=== PATIENT | male | born 1955 | race Two or more races ===

== ENCOUNTER 2023-12-08 13:02 | Inpatient (IN) | payer MEDICAID ==
[~2023-12-08] VITALS: Ht 177.8 cm; Wt 89.6 kg
[2023-12-08] MEDS: HYDROcodone-ACET 10/325MG TAB PO ONE (14:08)
[2023-12-08] MEDS: KETOROLAC TROMETH 60MG/2ML VIAL IM ONE (14:09)
[2023-12-08 14:35] LABS: Basophils # (auto) 0 10 ^3/uL (0-0.2); Basophils % (auto) 0.6 % (0.0-2.0); Eosinophils # (auto) 0.1 10 ^3/uL (0-0.8); Eosinophils % (auto) 1.4 % (0.0-7.0); Hematocrit 36.2 % (41.0-53.0); Lymphocytes # (auto) 1.1 10 ^3/uL (0.4-5.4); Lymphocytes % (auto) 22.2 % (10.0-50.0); Mean Corpuscular Hemoglobin 32.8 pg (28.0-32.0); Mean Corpuscular Hgb Conc. 33.2 g/dL (32.0-36.0); Monocytes # (auto) 0.6 10 ^3/uL (0-1.3); Monocytes % (auto) 12.5 % (0.0-12.0); Neutrophils # (auto) 3.1 10 ^3/uL (1.6-8.6); Neutrophils % (auto) 63.3 % (37.0-80.0); Nucleated Red Blood Cells % 0.1 %; Platelet Count (auto) 175 10^3/uL (140-450); Red Blood Cells 3.66 10^6/uL (4.5-5.90); Red Cell Distribution Width 15.1 % (11.8-14.3); White Blood Cell 4.9 10^3/uL (4.4-10.8)
[2023-12-08 14:47] LABS: Chloride 97 mmol/L (98-107); Potassium 4.5 mmol/L (3.5-5.1); Sodium 139 mmol/L (136-145)
[2023-12-08 14:48] LABS: Anion Gap 6 (5-15); Calcium 10.1 mg/dL (8.7-10.4); Carbon Dioxide 36 mmol/L (20-31)
[2023-12-08 14:53] LABS: BUN/Creatinine Ratio 3.6 (10.0-20.0); Blood Urea Nitrogen 26 mg/dL (9-23); Glucose 125 mg/dL (74-106)
[2023-12-08 15:10] LABS: Urine Bacteria None Seen /hpf (None Seen); Urine Blood Negative /uL (Negative); Urine Clarity Clear (Clear); Urine Color Light-Yellow (Yellow); Urine Protein, UAD 2+ (Negative); Urine Urobilinogen Normal (Negative); Urine WBC 3 /hpf (0 - 3)
[2023-12-08 19:36] VITALS: PULSE 56; RESP 18; O2SAT 98
[2023-12-08] MEDS ORDERED: ONDANSETRON HCL 4 MG/2 ML VIAL IV PRN (21:00)
[2023-12-08] MEDS ORDERED: HYDROcodone-ACET 5/325MG TAB PO PRN (21:00)
[2023-12-08] MEDS ORDERED: ACETAMINOPHEN 325 MG TAB PO PRN (21:00)
[2023-12-08] MEDS ORDERED: DOCUSATE SOD 100 MG CAP PO PRN (21:00)
[2023-12-08] MEDS: hydrALAZINE HCL 20 MG/ML VL IV PRN (22:23)
[2023-12-08] MEDS ORDERED: MORPHINE SULFATE INJ 2 MG/ml SYRG IV PRN (23:00)
[2023-12-08] MEDS ORDERED: NITROGLYCERIN 0.4 MG SL TAB SL PRN (23:00)
[2023-12-09] VITALS (8 sets, daily range): BP systolic 120–168; BP diastolic 73–85; PULSE 59–80; RESP 17–18; TEMP 36.3; O2SAT 98–100
[2023-12-09] MEDS: MORPHINE SULFATE INJ 2 MG/ml SYRG IV PRN (01:47)
[2023-12-09 05:55] LABS: Basophils # (auto) 0 10 ^3/uL (0-0.2); Basophils % (auto) 0.8 % (0.0-2.0); Eosinophils # (auto) 0.1 10 ^3/uL (0-0.8); Eosinophils % (auto) 1.6 % (0.0-7.0); Hematocrit 40.4 % (41.0-53.0); Hemoglobin 13.3 g/dL (13.5-17.5); Lymphocytes # (auto) 1.5 10 ^3/uL (0.4-5.4); Lymphocytes % (auto) 23.7 % (10.0-50.0); Mean Corpuscular Hemoglobin 32.8 pg (28.0-32.0); Mean Corpuscular Hgb Conc. 32.8 g/dL (32.0-36.0); Mean Corpuscular Volume 100.1 fL (80.0-100.0); Monocytes # (auto) 0.8 10 ^3/uL (0-1.3); Monocytes % (auto) 12.4 % (0.0-12.0); Neutrophils # (auto) 3.9 10 ^3/uL (1.6-8.6); Neutrophils % (auto) 61.5 % (37.0-80.0); Nucleated Red Blood Cells % 0.1 %; Platelet Count (auto) 157 10^3/uL (140-450); Red Blood Cells 4.04 10^6/uL (4.5-5.90); Red Cell Distribution Width 14.8 % (11.8-14.3); White Blood Cell 6.3 10^3/uL (4.4-10.8)
[2023-12-09 06:24] LABS: Albumin 4.4 g/dL (3.2-4.8); Alkaline Phosphatase 79 U/L (46-116); Anion Gap 8 (5-15); Aspartate Aminotransferase 9 U/L (13-40); BUN/Creatinine Ratio 3.8 (10.0-20.0); Bilirubin, Total 0.5 mg/dL (0.2-1.0); Blood Urea Nitrogen 32 mg/dL (9-23); Calcium 10.4 mg/dL (8.7-10.4); Carbon Dioxide 31 mmol/L (20-31); Chloride 98 mmol/L (98-107); Glucose 94 mg/dL (74-106); Potassium 5.4 mmol/L (3.5-5.1); Sodium 137 mmol/L (136-145)
[2023-12-09 06:34] LABS: Alanine Aminotransferase < 9 U/L (7-40)
[2023-12-09] MEDS: ALBUTEROL SULF 2.5 MG/0.5ML(0.5%) NEB SOLN NEB ONE (09:13)
[2023-12-09] MEDS: SEVELAMER 800 MG TAB PO SCH (09:42)
[2023-12-09] MEDS: NIFEdipine ER 30 MG TAB PO SCH (09:43)
[2023-12-09] MEDS: SODIUM ZIRCONIUM CYCL 10 GM PAK PO ONE (09:43)
[2023-12-09] MEDS: B-COMPLEX W/ C & FOLIC ACID(NEPHROVITE TAB) PO SCH (09:43)
[2023-12-09 12:47] LABS: Amphetamine Screen, Urine Neg (NEGATIVE); Barbiturate Scree,Urine Neg (NEGATIVE); Benzodiazephine Screen, Urine Neg (NEGATIVE); Cannabinoid Screen, Urine Neg (NEGATIVE); Cocaine Screen, Urine Neg (NEGATIVE); Opiate Scree,Urine Neg (NEGATIVE); Phencyclidine Screen, Urine Neg (NEGATIVE)
[2023-12-10 11:58] LABS: Folate (Folic Acid) 31.1 ng/mL (>5.38)
== END 2023-12-09 17:49 | disposition home or self-care (01) | DRG 465 ==
LOC: ER 13:02 → TELE 23:01 → TELE-WESTW 12-09 03:30
PROVIDERS: ADMIT Nurse Practitioner Family; ATTEND Nurse Practitioner Family
DX: N20.0 Calculus of kidney (principal); N17.9 Acute kidney failure, unspecified; I13.2 Hypertensive heart and chronic kidney disease with heart failure and with stage 5 chronic kidney disease, or end stage renal disease; E83.39 Other disorders of phosphorus metabolism; S39.012A Strain of muscle, fascia and tendon of lower back, initial encounter; R73.9 Hyperglycemia, unspecified; N18.6 End stage renal disease; M10.9 Gout, unspecified; E78.5 Hyperlipidemia, unspecified; E87.5 Hyperkalemia; I50.22 Chronic systolic (congestive) heart failure; Z99.2 Dependence on renal dialysis; Z79.899 Other long term (current) drug therapy; X58.XXXA Exposure to other specified factors, initial encounter; Y93.89 Activity, other specified; Y92.89 Other specified places as the place of occurrence of the external cause; Y99.8 Other external cause status
CPT/HCPCS: 36415; 71045; 74176; 76775; 80048; 80053; 80307; 81001; 82306; 82607; 82746; 83036; 83880; 83970; 84100; 84132; 84443; 85025; 87081; 94640; 96372; 96374; G0378; J1885

== ENCOUNTER 2024-03-27 20:17 | Inpatient (IN) | payer MEDICAID ==
[~2024-03-27] VITALS: Ht 175.3 cm; Wt 92.6 kg
--- NOTE | 2024-03-27 20:47 | ED.PDOC ---
GI ASSESSMENT HPI Comments Sunita De La Rosa 68-year-old male patient who presents to ED with chief complaint of dizziness which started after hemodialysis session today at 11:00 a.m (balance -3L), associated with multiple episodes of proctorrhagia which started at 2:00 a.m. last night, associated with chills, bilateral flank pain and productive cough with dark sputum. Family reports grandchildren have been presenting diarrhea as well. Denies head trauma, syncope, chest pain, dyspnea, nausea, vomiting, constipation, dysuria and motor or sensory deficits. Past medical history: Hypertension, dyslipidemia, end-stage renal disease on hemodialysis 3 times a week (Sunday, and Sunday), [place] in two opportunities with PCI requiring stent placement, gout Surgical history: PCI x2, last one was one year ago. AV fistula on left arm Family history: Noncontributory Social history: Lives with daughter in [place]. Denies current tobacco, alcohol and other drug abuse Allergies: Denies Home medication: Sevelamer, losartan 50 mg p.o. daily, vitamin-D, nifedipine 60 mg p.o. daily, Ropinirole, carvedilol 3.125 mg bid, allopurinol, clopidogrel Chief Complaint: GI Bleed Time Seen by MD: 20:18 Allergies: Coded Allergies: NO KNOWN ALLERGIES (Unverified , 12/08/23) Past Medical History PAST MEDICAL HISTORY: Denies Surgical History: Denies all surgeries Family History Family History: Reviewed,noncontributory to illness Social History Smoker: Non-Smoker Alcohol: Denies ETOH Use Drugs: Denies Drug Use Lives In: Home Physical Exam General Appearance: Mild Distress, Normal, Thin HEENT: Pale Conjuntivae (L), Pale Conjuntivae (R), Pharynx Normal, TMs Normal Neck: Full Range of Motion, Non-Tender, Normal, Normal Inspection Respiratory: Chest Non-Tender, Lungs Clear, No Accessory Muscle Use, No Respiratory Distress, Normal Breath Sounds Cardiovascular: No Edema, No JVD, No Murmur, No Gallop, Normal Peripheral Pulses, Regular Rate/Rhythm Breast Exam: Deferred Gastrointestinal: Diffuse, No Organomegaly, No Pulsatile Mass, Normal Bowel Sounds, Soft, Tenderness Genitalia: Deferred Pelvic: Deferred Rectal: Deferred Extremities: No calf tenderness, Normal capillary refill, Normal inspection, Normal range of motion, Non-tender, No pedal edema Neurologic: Alert, millwright supervisor II-XII nml as Tested, No Motor Deficits, Normal Affect, Normal Mood, No Sensory Deficits Cerebellar Function: Normal Reflexes: Normal Skin: Dry, Normal Color, Warm Lymphatic: No Adenopathy Was a procedure done? Was a procedure done?: No GI differential Dx Differential Diagnosis: Angina/IL, Bowel Obstruction, Ectopic , Gastritis/PUD, GI hemorrhage, Hepatitis, Ischemic Bowel, Urolithiasis, Dehydration, Electrolyte Imbalance, Bacterial, Parasitic, Viral, Hypovolemia, Renal Failure, Anemia X-Ray, Labs, Meds, VS Vital Signs Date Time Temp Pulse Resp B/P (MAP) Pulse Ox O2 Delivery O2 Flow Rate FiO2 03/27/24 21:39 72 21 87/49 (62) 97 03/27/24 20:48 98.4 82 20 91/51 (64) 100 03/27/24 20:48 82 03/27/24 20:44 81 Lab Test 03/27/24 21:41 03/27/24 21:15 03/27/24 21:00 Range/Units White Blood Count Pending Red Blood Count Pending Hemoglobin Pending Hematocrit Pending Mean Corpuscular Volume Pending Mean Corpuscular Hemoglobin Pending Mean Corpuscular Hemoglobin Concent Pending Red Cell Distribution Width Pending Platelet Count Pending Mean Platelet Volume Pending Neutrophils (%) (Auto) Pending Lymphocytes (%) (Auto) Pending Monocytes (%) (Auto) Pending Basophils (%) (Auto) Pending Neutrophils # (Auto) Pending Lymphocytes # (Auto) Pending Monocytes # (Auto) Pending Prothrombin Time Pending Prothrombin Time INR Pending Activated Partial Thromboplast Time Pending Sodium Level Pending Potassium Level Pending Chloride Level Pending Carbon Dioxide Level Pending Anion Gap Pending Blood Urea Nitrogen Pending Creatinine Pending Glomerular Filtration Rate Calc Pending BUN/Creatinine Ratio Pending Serum Glucose Pending Lactic Acid Level Pending Calcium Level Pending Phosphorus Level Pending Magnesium Level Pending Total Bilirubin Pending Aspartate Amino Transferase (AST) Pending Alanine Aminotransferase (ALT) Pending Alkaline Phosphatase Pending Total Protein Pending Albumin Pending Lipase Pending Thyroid Stimulating Hormone (TSH) Pending Iron Level Pending Total Iron Binding Capacity Pending Percent Iron Saturation Pending Stool Occult Blood Sample #3 Pending Current Medications Medications (Trade) Dose Ordered Sig/Ryan Route Start Time Stop Time Status Last Admin Ondansetron HCl (Zofran Po) 4 mg ONCE ONCE PO 03/27/24 20:45 03/27/24 20:46 DC 03/27/24 21:55 Pantoprazole Sodium (Protonix) 40 mg ONCE ONCE IV 03/27/24 21:15 03/27/24 21:16 DC 03/27/24 21:55 Time of 1ST Reevaluation: 22:05 Reevaluation 1ST: Worsened Patient Education/Counseling: Diagnosis, Treatment, Prognosis Family Education/Counseling: Diagnosis, Treatment, Prognosis Departure 1 Departure Time of Disposition: 22:03 Impression: Primary Impression: Lower GI bleed Disposition: ADMITTED INPATIENT Condition: Serious Additional Instructions: PAtient has active bleeding, will place central line, awaiting for type and screen. Will admit to stabilize. Patient has critical prognosis, spoke with daughter. Critical Care Note Critical Care Time?: No Stability Stability form required: No Heart Score Heart Score: Heart Score Response (Comments) Value History N/A 0 EKG N/A 0 Age N/A 0 Risk Factors N/A 0 Troponin N/A 0 Total 0 KELLY SINGLETON RESIDENT Mar 27, 2024 20:47
--- NOTE | 2024-03-27 20:50 | ECG ---
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
[2024-03-27] MEDS: ONDANSETRON ODT 4 MG TAB PO ONE (21:55)
[2024-03-27] MEDS: PANTOPRAZOLE 40 MG/10 ML VIAL INJ IV ONE (21:55)
[2024-03-27 21:59] LABS: Basophils # (auto) 0 10 ^3/uL (0-0.2); Eosinophils # (auto) 0.1 10 ^3/uL (0-0.8); Lymphocytes # (auto) 1.1 10 ^3/uL (0.4-5.4); Mean Corpuscular Hgb Conc. 32.6 g/dL (32.0-36.0); Neutrophils # (auto) 3.2 10 ^3/uL (1.6-8.6); Nucleated Red Blood Cells % 0.1 %; Red Blood Cells 1.89 10^6/uL (4.5-5.90); White Blood Cell 4.9 10^3/uL (4.4-10.8)
[2024-03-27 22:01] LABS: Basophils % (auto) 0.7 % (0.0-2.0); Eosinophils % (auto) 1.3 % (0.0-7.0); Hematocrit 19.3 % (41.0-53.0); Lymphocytes % (auto) 22.8 % (10.0-50.0); Mean Corpuscular Hemoglobin 33.3 pg (28.0-32.0); Mean Corpuscular Volume 102.1 fL (80.0-100.0); Monocytes # (auto) 0.5 10 ^3/uL (0-1.3); Monocytes % (auto) 10.3 % (0.0-12.0); Neutrophils % (auto) 64.9 % (37.0-80.0); Platelet Count (auto) 155 10^3/uL (140-450); Red Cell Distribution Width 15.4 % (11.8-14.3)
[2024-03-27 22:03] VITALS: RESP 14; O2SAT 98
[2024-03-27 22:08] LABS: Hemoglobin 6.3 g/dL (13.5-17.5)
--- NOTE | 2024-03-27 22:08 | DVHNC2 ---
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 (Resident) Indication: Hypotension, CVP monitoring, Volume resuscitation, Inability to obtain IV Room prepared for procedure: Yes Social Media Assistant performed hand hygien: Yes Maximal sterile barrier precau: Mask/Eye shield, Sterile gown, Cap, Sterlie gloves, Large sterlie drape Skin Preparation: Chlorhexidine gluconate Skin preparation completely dr: Yes Insertion site: Right, Internal jugular, Line secured Central line catheter type: [id number] dialysis Number of lumens: 3 Central line exchanged over a: No Antiseptic ointment applied to: Yes Post Assessment: Chest X-Ray Informed consent obtained: Yes Risks/benefits/alt described: Yes Date of Service: Mar 27, 2024 Billing Provider: JIMMY SHERIFF NP STDN Common Visit Codes: PROCEDURE ONLY Procedure Codes: [id number] NON-TUNNEL CV CATH KELLY SINGLETON RESIDENT Mar 27, 2024 22:08
[2024-03-27 22:18] LABS: Albumin 4.2 g/dL (3.2-4.8); Alkaline Phosphatase 75 U/L (46-116); Anion Gap 13 (5-15); BUN/Creatinine Ratio 4.6 (10.0-20.0); Bilirubin, Total 0.5 mg/dL (0.2-1.0); Calcium 9.4 mg/dL (8.7-10.4); Carbon Dioxide 27 mmol/L (20-31); Magnesium 2.4 mg/dL (1.6-2.6); Phosphorus 3.3 mg/dL (2.4-5.1); Sodium 138 mmol/L (136-145)
[2024-03-27 22:19] LABS: INR 1.02 (0.9-1.15); Partial Thromboplastin Time 21.7 SEC (24.5-34.5); Prothrombin Time 10.8 sec (9.3-11.8)
[2024-03-27 22:23] LABS: Aspartate Aminotransferase < 8 U/L (13-40); Blood Urea Nitrogen 45 mg/dL (9-23); Chloride 98 mmol/L (98-107); Glucose 181 mg/dL (74-106)
[2024-03-27 22:24] LABS: Alanine Aminotransferase < 9 U/L (7-40)
[2024-03-27 22:27] LABS: Lactic Acid w/Reflex 5.7 mmol/L (0.4-2.0); Potassium 5.7 mmol/L (3.5-5.1)
[2024-03-27 22:28] LABS: % Iron Saturation 49.7 % (20-55)
[2024-03-27] MEDS: SODIUM CHLORIDE 0.9% 250 ML IV ONE (22:35)
[2024-03-27 22:37] LABS: Lipase 24 U/L (12-53)
[2024-03-27] MEDS: ALBUTEROL SULF 2.5 MG/0.5ML(0.5%) NEB SOLN NEB ONE (22:48)
[2024-03-27] MEDS: InsuLIN REG 1unit/0.01ml Soln (100units/ml) IV ONE (22:48)
--- NOTE | 2024-03-27 22:49 | DVH ---
EXAM: XY CHEST PORTABLE CLINICAL HISTORY: CENTRAL LINE PLACEMENT TECHNIQUE: Single AP view of the chest WID: COMPARISON: XY CHEST XRAY 1 VIEW on DOS: 12/09/23 FINDINGS: Lines and tubes: Right IJ central venous catheter with the tip projecting over the low SVC. Chest: The heart size and pulmonary vasculature is within normal limits. Calcified plaque projects over the aortic arch. No pleural effusion, pneumothorax, or consolidation. Linear scarring or atelectasis in the left lung base. The osseous structures are grossly intact. IMPRESSION: 1. No acute cardiopulmonary abnormality. 2. Right IJ central venous catheter placement with tip projecting of the low SVC
[2024-03-27] MEDS: DEXTROSE (50%) 50ML SYRG IV ONE (22:51)
[2024-03-27] MEDS: SODIUM BICARB 8.4% 50Meq/50ml SYR INJ IV ONE (22:51)
[2024-03-27] MEDS: SODIUM ZIRCONIUM CYCL 10 GM PAK PO ONE (22:52)
--- NOTE | 2024-03-27 23:43 | DVH ---
CLINICAL HISTORY: Lower GI bleeding and bilateral flank pain TECHNIQUE: CT of the abdomen and pelvis was performed without intravenous contrast. This exam was per formed according to our departmental dose optimization program. Up-to-date CT equipment and radiation dose reduction techniques are utilized as appropriate. CTDI: 20.55 DLP: 1348.66 WID: COMPARISON: CT CT AB PEL WO CON-NO ORAL OR IV on DOS: 12/08/23 FINDINGS: Lower Thorax: Small pxweo-qysszhl-eyzr-left pleural effusions. Linear and ground-glass atelectasis in the lung bases. Mild cardiomegaly with trace pericardial fluid. Partially imaged moderate to marked 3-vessel coronary artery calcifications and mild aortic valve calcifications. There is a tip of the c entral venous catheter at the cavoatrial junction. Hypodensity of the blood pool relative to the myoc ardium indicative of anemia. Small bilateral symmetric gynecomastia. Liver and Biliary system: Unremarkable. Spleen: Unremarkable. Adrenal Glands and Kidneys: Normal adrenal glands. Mildly atrophic kidneys. There is perinephric soft tissue stranding unchanged. Exophytic bilateral renal hypodensities likely cysts although not optima lly evaluated by CT bilateral renal sinus cysts. Bilateral renal hilar vascular calcifications. No hy dronephrosis. Pancreas and Retroperitoneum: Normal pancreas. Mildly prominent retroperitoneal lymph nodes although are predominantly normal-size. Aorta and Major Vessels: Aortoiliac vessels are normal in caliber with marked calcified atherosclerot ic plaque Bowel, Mesentery and Peritoneal space: Normal caliber small and large bowel. Normal appendix. Mild co lonic diverticulosis. No free air or loculated fluid collection. There is slight soft tissue strandin g adjacent to the proximal ascending colon with ill definition of 1 of the diverticula posteriorly on series 2, image 54. Pelvis: Decompressed urinary bladder. Mild prostatomegaly. No pelvic lymphadenopathy. Abdominal wall and Osseous Structures: Multilevel lower thoracic and lumbar spondylosis. Prominent in ferior endplate schmorl's nodes at L1 and L5. No destructive osseous lesion. IMPRESSION: 1. Mild colonic diverticulosis; slight ill definition of 1 of the diverticula posteriorly in the prox imal ascending colon with mild surrounding soft tissue thickening which could reflect early acute div erticulitis 2. Perinephric soft Tissue stranding unchanged. Correlate with urinalysis if there is clinical angelika rn for urinary tract infection. 3. Anemia. 4. Mild cardiomegaly and small ajslk-goyzico-vyht-left pleural effusions. 5. Partially imaged moderate to marked 3-vessel coronary artery calcifications and mild aortic valve calcifications. 6. Mild prostatomegaly.
[2024-03-27 23:50] VITALS: BP 118/58; PULSE 80; RESP 13; TEMP 98.1
[2024-03-28] VITALS (15 sets, daily range): BP systolic 121–152; BP diastolic 59–80; PULSE 65–107; RESP 12–20; TEMP 97.5–98.7; O2SAT 96–100
--- NOTE | 2024-03-28 01:50 | DVHHPRES ---
History of Present Illness Resident Creating Document: KATHERIN DAY RESIDENT History of Present Illness Patient is a 68-year-old male with past medical history of hypertension, dyslipidemia, ESRD dialysis 3 times, myocardial infarction s/p PCI x2 stents 1 year ago, gout, restless leg syndrome, who came in due to diarrhea and bloody stools. According to the patient, he started having bloody diarrhea in the evening of 03/26/2023, notes having more than 10 bowel movements overnight. Per patient, he missed his dialysis session on Sunday, after the completion of his dialysis session on with removal of 3 L of fluid, he noticed increasing lightheadedness which is what prompted this visit to the hospital. Denies having similar symptoms in the past. On review of systems patient is complaining of chills, dry cough, shortness of breath, nausea, dysuria and bloody diarrhea. Patient was noted to have a hemoglobin of 6.3 and 2 PRBC transfusions were ordered for him. Patient is AAO x4 but relatively a poor historian with regards to details about his past medical history. Past Medical History hypertension, dyslipidemia, ESRD dialysis 3 times, myocardial infarction s/p PCI x2 stents 1 year ago, gout, restless leg syndrome Past Surgical History Left arm dialysis fistula Smoke: No ALCOHOL: none Drugs: None Lives: with Family Review of Systems Constitutional: Yes: Chills; No: Fever, Sweats, Weakness, Malaise, Other Eyes: No: Pain, Vision change, Conjunctivae inflammation, Eyelid inflammation, Other, Redness ENT: No: Ear pain, Ear discharge, Nose pain, Nose discharge, Nose congestion, Mouth pain, Mouth swelling, Throat pain, Throat swelling, Other Respiratory: Cough, Shortness of breath; No: Dry, SOB with excertion, Wheezing, Hemoptysis, Pleuritic Pain, Sputum, Wheezing, Other Cardiovascular: No: Chest Pain, Palpitations, Orthopnea, Paroxysmal Noc. Dyspnea, Edema, Lt Headedness, Other Gastrointestinal: Nausea, Diarrhea, Hematochezia; No: Vomiting, Abdominal Pain, Constipation, Melena, Other Genitourinary: Dysuria; No Frequency, No Incontinence, No Hematuria, No Retention, No Other Musculoskeletal: No: other, neck pain, shoulder pain, arm pain, back pain, hand pain, leg pain, foot pain Skin: No: Rash, Lesions, Jaundice, Bruising, Other Neurological: No: Weakness, Numbness, Incoordination, Change in speech, Confusion, Seizures, Other Allergies: Coded Allergies: Spironolactone (Verified Allergy, Unknown, 03/28/24) Medications Current Medications Medications Dose Ordered Sig/Ryan Route Start Time Stop Time Status Last Admin Dose Admin Pantoprazole Sodium 40 mg BID IV 03/28/24 10:00 Patient Own Medication 1 DAILY PO 03/28/24 10:00 UNV Sevelamer HCl 800 mg TIDWM PO 03/28/24 08:00 Exam Vital Signs Vital Signs Date Time Temp Pulse Resp B/P (MAP) Pulse Ox O2 Delivery O2 Flow Rate FiO2 03/28/24 01:15 77 13 127/60 (82) 100 03/28/24 01:00 98.3 98.3 03/27/24 22:49 Nasal Cannula* 3 32 General Appearance: Alert, Oriented X3, Cooperative, mild distress HEENT: Atraumatic, PERRLA, EOMI Respiratory: Normal air movement, Other (Trace crackles) Cardiovascular: Regular rate, Normal S1, Normal S2 Abdominal: Normal bowel sounds, Soft, No tenderness Extremities: Normal pulses, Other (1+ lower extremity edema) Skin: No rashes, No breakdown Neuro: Normal speech, Strength at 5/5 X4 ext, Sensation intact Psych/Mental Status: Mental status NL, Mood NL Labs/Xrays Labs Test 03/27/24 23:33 03/27/24 22:50 03/27/24 21:41 03/27/24 21:15 Range/Units Lactic Acid Level 2.9 *H 0.4-2.0 mmol/L POC Glucose 164 H 70-106 mg/dl White Blood Count 4.9 4.4-10.8 10^3/uL Red Blood Count 1.89 L 4.5-5.90 10^6/uL Hemoglobin 6.3 *L 13.5-17.5 g/dL Hematocrit 19.3 L 41.0-53.0 % Mean Corpuscular Volume 102.1 H 80.0-100.0 fL Mean Corpuscular Hemoglobin 33.3 H 28.0-32.0 pg Mean Corpuscular Hemoglobin Concent 32.6 32.0-36.0 g/dL Red Cell Distribution Width 15.4 H 11.8-14.3 % Platelet Count 155 140-450 10^3/uL Mean Platelet Volume 9.8 6.9-10.8 fL Neutrophils (%) (Auto) 64.9 37.0-80.0 % Lymphocytes (%) (Auto) 22.8 10.0-50.0 % Monocytes (%) (Auto) 10.3 0.0-12.0 % Eosinophils (%) (Auto) 1.3 0.0-7.0 % Basophils (%) (Auto) 0.7 0.0-2.0 % Neutrophils # (Auto) 3.2 1.6-8.6 10 ^3/uL Lymphocytes # (Auto) 1.1 0.4-5.4 10 ^3/uL Monocytes # (Auto) 0.5 0-1.3 10 ^3/uL Eosinophils # (Auto) 0.1 0-0.8 10 ^3/uL Basophils # (Auto) 0 0-0.2 10 ^3/uL Nucleated Red Blood Cells 0.1 % Prothrombin Time 10.8 9.3-11.8 sec Prothrombin Time INR 1.02 0.9-1.15 Activated Partial Thromboplast Time 21.7 L 24.5-34.5 SEC Sodium Level 138 136-145 mmol/L Potassium Level 5.7 *H 3.5-5.1 mmol/L Chloride Level 98 98-107 mmol/L Carbon Dioxide Level 27 20-31 mmol/L Anion Gap 13 5-15 Blood Urea Nitrogen 45 H 9-23 mg/dL Creatinine 9.70 H 0.700-1.30 mg/dL Glomerular Filtration Rate Calc 5 >90 mL/min BUN/Creatinine Ratio 4.6 L 10.0-20.0 Serum Glucose 181 H 74-106 mg/dL Calcium Level 9.4 8.7-10.4 mg/dL Phosphorus Level 3.3 2.4-5.1 mg/dL Magnesium Level 2.4 1.6-2.6 mg/dL Total Bilirubin 0.5 0.2-1.0 mg/dL Aspartate Amino Transferase (AST) < 8 L 13-40 U/L Alanine Aminotransferase (ALT) < 9 7-40 U/L Alkaline Phosphatase 75 46-116 U/L Total Protein 6.0 5.7-8.2 g/dL Albumin 4.2 3.2-4.8 g/dL Lipase 24 12-53 U/L Thyroid Stimulating Hormone (TSH) 4.58 0.55-4.78 uIU/mL Iron Level 94 65-175 ug/dL Total Iron Binding Capacity 189 L 250-425 ug/dL Percent Iron Saturation 49.7 20-55 % Test 03/27/24 21:00 Range/Units Stool Occult Blood Positive Negative Stool Occult Blood Sample #3 Negative Assessment/Plan Assessment/Plan Lower GI bleed Possible uremic platelet dysfunction Lactic acidosis - CT abdomen pelvis:Mild colonic diverticulosis; slight ill definition of 1 of the diverticula posteriorly in the proximal ascending colon with mild surrounding soft tissue thickening which could reflect early acute diverticulitis. Perinephric soft Tissue stranding unchanged. Correlate with urinalysis if there is clinical concern for urinary tract infection. Anemia. Mild cardiomegaly and small zudks-dvmgqrp-lzij-left pleural effusions. Partially imaged moderate to marked 3-vessel coronary artery calcifications and mild aortic valve calcifications. Mild prostatomegaly. - CXR: No acute cardiopulmonary abnormality - s/p 1 PRBC transfusion - IV NS 1 L - IV Protonix 40 b.i.d. - GI consulted - sodium bicarb 1 amp ESRD on hemodialysis Sunday, and Sunday History of Bilateral nephrolithiasis - resumed sevelamer 800 mg p.o. t.i.d. - consulted nephrology Heart failure with moderately reduced ejection fraction, EF 40% in April 2023 Prolonged QTC Coronary artery disease s/p PTCA x2 - BNP - ordered echocardiogram Hyperkalemia - insulin and dextrose - albuterol - Lokelma 10 g once Hypertension Dyslipidemia Restless leg syndrome - resumed home medication ropinirole - gabapentin 300 mg Goals of care: Full code, discussed for >16 minutes on 03/27/2024 Plan discussed with patient Plan discussed with Dr. Estrada Plan discussed with: Patient, Other (RN) My Orders Orders - KATHERIN DAY RESIDENT Procedure Category Date Status Time Admit ADMIT 03/27/24 Transmitted 22:31 Code Status CODE 03/27/24 Transmitted 22:31 Vital Signs JAYNA 03/27/24 In Process 22:31 Review Orders With JAYNA 03/27/24 In Process Adm. 22:31 Notify Of Changes JAYNA 03/27/24 In Process From Base 22:31 Advance Directive JAYNA 03/27/24 In Process 22:31 Patient Condition ORDERS 03/27/24 Transmitted 22:31 Allergies JAYNA 03/27/24 In Process 22:31 Notify Of Changes JAYNA 03/27/24 In Process From Base 22:31 * Gi Dvh Fermenter Operator CONS 03/28/24 Transmitted 01:40 Npo Except For JAYNA 03/28/24 In Process Medications 01:40 Folate (Folic Acid) LAB 03/28/24 Logged 01:40 Vitamin B12 LAB 03/28/24 Logged 01:40 Reticulocyte Count LAB 03/28/24 Logged 01:40 Lactate Dehydrogenase LAB 03/28/24 Logged 01:40 *Dr. Ebonie Rodriguez -Da CONS 03/28/24 Transmitted Bree 01:40 Potassium LAB 03/28/24 Logged 01:40 Urinalysis LAB 03/28/24 Logged 01:40 Blood Culture MIKE 03/28/24 Logged 01:40 Lactic Acid W/ Reflex LAB 03/28/24 Logged Order 01:40 B-Type Natriuretic LAB 03/28/24 Logged Peptide 01:40 Echo 2d Mode Cardiac US 03/28/24 Logged DOP 01:40 Patients Own PHA 03/28/24 Logged Medication 10:00 Sevelamer (Renagel) PHA 03/28/24 In Process 08:00 Date of Service: Mar 27, 2024 Billing Provider: YAN BABCOCK MD Common Visit Codes: [id number] INP/OBS CARE (HIGH) KATHERIN DAY RESIDENT Mar 28, 2024 01:50 YAN BABCOCK MD Apr 02, 2024 16:02
[2024-03-28] MEDS: GABAPENTIN 300 MG CAP PO ONE (04:02)
[2024-03-28] MEDS: SEVELAMER 800 MG TAB PO SCH (08:00)
[2024-03-28] MEDS: PANTOPRAZOLE 40 MG/10 ML VIAL INJ IV SCH (08:20)
[2024-03-28] MEDS: ROPINIROLE PO SCH (08:20)
[2024-03-28 08:57] LABS: Basophils # (auto) 0 10 ^3/uL (0-0.2); Basophils % (auto) 0.6 % (0.0-2.0); Eosinophils # (auto) 0.1 10 ^3/uL (0-0.8); Eosinophils % (auto) 1.4 % (0.0-7.0); Hematocrit 22.7 % (41.0-53.0); Hemoglobin 7.5 g/dL (13.5-17.5); Lymphocytes # (auto) 1.1 10 ^3/uL (0.4-5.4); Lymphocytes % (auto) 23.1 % (10.0-50.0); Mean Corpuscular Hemoglobin 31.6 pg (28.0-32.0); Mean Corpuscular Hgb Conc. 33.2 g/dL (32.0-36.0); Mean Corpuscular Volume 95.3 fL (80.0-100.0); Monocytes # (auto) 0.5 10 ^3/uL (0-1.3); Monocytes % (auto) 11.8 % (0.0-12.0); Neutrophils # (auto) 2.9 10 ^3/uL (1.6-8.6); Neutrophils % (auto) 63.1 % (37.0-80.0); Platelet Count (auto) 131 10^3/uL (140-450); Red Blood Cells 2.38 10^6/uL (4.5-5.90); Red Cell Distribution Width 15.8 % (11.8-14.3); White Blood Cell 4.6 10^3/uL (4.4-10.8)
[2024-03-28 09:04] LABS: Folate (Folic Acid) 19.02 ng/mL (>5.38)
[2024-03-28 09:52] LABS: Chloride 101 mmol/L (98-107); Sodium 141 mmol/L (136-145)
[2024-03-28 09:53] LABS: Anion Gap 9 (5-15); Carbon Dioxide 31 mmol/L (20-31)
[2024-03-28 09:54] LABS: Calcium 9.3 mg/dL (8.7-10.4)
[2024-03-28 09:56] LABS: Potassium 5.3 mmol/L (3.5-5.1)
[2024-03-28 09:58] LABS: BUN/Creatinine Ratio 4.7 (10.0-20.0)
[2024-03-28 10:31] LABS: Blood Urea Nitrogen 48 mg/dL (9-23); Glucose 115 mg/dL (74-106)
[2024-03-28] MEDS: cefTRIAXone 1GM/50ML D5W 50 ML IV ONE (11:10)
[2024-03-28] MEDS: metroNIDAZOLE 500MG/100ML 100 ML IV ONE (11:10)
--- NOTE | 2024-03-28 11:32 | DVHINCON2 ---
DATE OF CONSULTATION: 03/28/2024 CONSULTING PHYSICIAN: Dr. Cohen. REASON FOR CONSULTATION: Management of dialysis. HISTORY OF PRESENT ILLNESS: The patient is a 68-year-old gentleman, who is one of our chronic dialysis patients, who receives his dialysis on Sunday, and Sunday. He came to the hospital yesterday complaining of bloody diarrhea for the last 3 days. He was found to have a hemoglobin of 6. He received a blood transfusion in the Emergency Room and has been admitted for gastrointestinal workup and colonoscopy. I am being consulted to handle his dialysis treatment while he is here. The patient denies any fever, no chest pain, no shortness of breath. PAST MEDICAL HISTORY: Significant for longstanding end-stage renal disease, diabetes, hypertension, hyperlipidemia, coronary artery disease. He has two stents in the coronary arteries. He has also gout and restless legs syndrome. SOCIAL HISTORY: The patient denies smoking cigarettes, drinking alcohol or using illicit drugs. MEDICATIONS: Ceftriaxone, metronidazole, pantoprazole, sevelamer. PHYSICAL EXAMINATION: VITAL SIGNS: Blood pressure is 127/71, heart rate 65, respirations 18, temperature 98. GENERAL: The patient is an adult gentleman who appears to be older than his stated age, who is in no acute distress, alert and oriented x3. HEENT: Unremarkable. LUNGS: Clear to auscultation. CARDIOVASCULAR: Shows regular rate with a 1/6 systolic murmur in all auscultatory areas. There is no pericardial rub. ABDOMEN: Soft, nontender. No organomegalies. Bowel sounds are normal in intensity and frequency. There is no ascites. EXTREMITIES: Show no clubbing, cyanosis. There is no edema. NEUROLOGIC: Nonfocal. SKIN: Unremarkable. LABORATORY DATA: Sodium 129, potassium 5.3, BUN 31, creatinine 10. Hemoglobin is 7.5. ASSESSMENT AND PLAN: End-stage renal disease. The patient will be scheduled to have dialysis tomorrow. We will remove only 1 liter of fluid since he has been having diarrhea. We will not use heparin due to gastrointestinal bleeding. We will increase the dose of Epogen. He should also receive intravenous iron. I will follow him during the hospital stay. Thank you for the consultation. MD EM García/CT TID: [id number] RECEIPT: [id number]
--- NOTE | 2024-03-28 12:49 | DVHSR ---
APPROVED REPORT EXAM: Two-dimensional and M-mode echocardiogram with Doppler and color Doppler. Blood Pressure: 129/62 mmHg INDICATION Heart Failure RISK FACTORS Height: 5'9", Weight: 194 DIMENSIONS LVDd6.3 (3.8-5.7cm)LA (2D)5.0 (1.9-4.0cm)Aortic Root3.4 (2.0-3.7cm) LVDs5.5 (2.5-4.0cm)LA (MM) (1.9-4.0cm)Aortic Cusp Exc1.8 (1.5-2.0cm) EF (%) 27.0 (55-70%)Rt. Atrium5.8 (1.9-4.0cm)Asc. Aorta3.5 cm IVSd1.4 (0.7-1.1cm)RV (D)4.8 (1.8-2.4cm) PWd1.1 (0.7-1.1cm) Mitral Valve MitralMitral Stenosis E wave0.96m/sMV Mean GR.mmHg A wave0.68m/sMV Peak GR.mmHg E/A ratio1.42D MVAcm2 DECEL [id number] 1/2 Timems Aortic Valve Aortic ValveAortic Stenosis V10.67m/Mendoza Mean GR.4mmHg V21.33m/Mendoza Peak GR.7mmHg LVOT Diameter2.4 (1.8-2.4cm)Doppler AVA2.28cm2 AI P 1/2 Nxhr128.16ms Pulmonic Valve V20.72m/s Tricuspid Valve TR Velocity2.78m/s [id number] LEFT VENTRICLE The Left Ventricle is mildly dilated. There is mild to moderateasymmetric left ventricular hypertrophy. Left ventricle systolic function is severely reduced, LVEF is 25-30%. Tissue Doppler imaging reveals moderate diastolic dysfunction There is global hypokinesis of the left ventricle. RIGHT VENTRICLE The right ventricle is mildly dilated. The right ventricular systolic function is normal. ATRIA The left atrium is severely dilated. The right atrium size is normal. MITRAL VALVE The mitral valve is normal. Mitral regurgitation is trace to mild. PULMONIC VALVE The pulmonic valve is normal in structure and function. There is no pulmonic valvular regurgitation. TRICUSPID VALVE The tricuspid valve is grossly normal. There is trace tricuspid regurgitation. AORTIC VALVE The aortic valve is trileaflet. The aortic valve is mildlysclerotic. No aortic regurgitation is present. GREAT VESSELS The aortic root is normal size. PERICARDIAL EFFUSION There is no evidence of pericardial effusion. Conclusion The Left Ventricle is mildly dilated. There is mild to moderate asymmetric left ventricular hypertrop hy. Left ventricle systolic function is severely reduced, LVEF is 25-30%. Tissue Doppler imaging reve als moderate diastolic dysfunction. There is global hypokinesis of the left ventricle. The right ventricle is mildly dilated. The right ventricular systolic function is normal. The left atrium is severely dilated. No significant valvular abnormalities. IVC is not dilated and collapses < 50% with inspiration. There is no evidence of pericardial effusion.
[2024-03-28 12:50] LABS: Hematocrit 21.8 % (41.0-53.0); Hemoglobin 7.3 g/dL (13.5-17.5)
--- NOTE | 2024-03-28 13:40 | DVHPNRES ---
Progress Note Date Seen: Mar 28, 2024 Resident Creating Document: YONI RDZ RESIDENT Has the PT tested + for MRSA If YES, has PT been informed?: No Medical Necessity Reason Pt with a Central, PICC or Fol: No Subjective Review of Systems This is a 68-year-old male with past medical history of hypertension, dyslipidemia, ESRD dialysis 3 times a week, myocardial infarction s/p PCI x2 stents (1 year ago, per previous records), gout, restless leg syndrome, who presented to the ED due to bloody diarrhea. According to the patient, he started having bloody diarrhea in the evening of 03/26/2023, The patient reported more than 10 bowel movements overnight. Per patient, he missed his dialysis session on Sunday and after the completion of his dialysis session on with removal of 3 L of fluid, he noticed increasing lightheadedness which is what prompted this visit to the hospital. Denies having similar symptoms in the past. On admission he was found to have any hemoglobin of 6.3 for which 2 units of red blood cells were transfused. BUN and creatinine were significantly elevated in the setting of end-stage renal disease. GI was consulted for possible lower GI bleed. Upon my examination, the patient denied chest pain, shortness of breath, abdominal pain, dizziness or weakness. The patient was admitted for further stabilization of his hemoglobin and further assess the possible cause. Patient seen and examined at bedside. The patient is alert and oriented in person, place and time. The patient denies abdominal pain, fever/chills, diarrhea, nausea or vomiting. The patient states that he is feeling better at this time. The patient has no signs of volume overload at inspection, and on physical examination there are no peripheral edema or crackles on lung auscultation. Today BUN is 48 and creatinine 10.29. Nephrology is on board and we will schedule hemodialysis for tomorrow. Meanwhile waiting for GI evaluation and assessment as possible cause of dropping hemoglobin. ROS Constitutional: Denies weight loss, fever and chills. HEENT: Denies changes in vision and hearing. Respiratory: Denies shortness of breath and cough Cardiovascular: Denies chest discomfort or palpitations GI: Denies abdominal pain, nausea, vomiting and diarrhea. : Denies dysuria and urinary frequency. Musculoskeletal: Denies myalgias and joint pain Skin: Denies rash and pruritus. Neurological: Denies dizziness, headache, vision or hearing problems Objective vital signs Vital Sign Date Time Temp Pulse Resp B/P (MAP) Pulse Ox O2 Delivery O2 Flow Rate FiO2 03/28/24 13:00 97.5 71 18 148/72 (97) 98 97.5 03/28/24 08:00 Room Air* 0 21 Total Intake and Output 03/27/24 03/27/24 03/28/24 15:00 23:00 07:00 Intake Total 250 ml 600 ml Output Total 0 ml Balance 250 ml 600 ml medications Current Medications Medications Dose Ordered Sig/Ryan Route Start Time Stop Time Status Last Admin Dose Admin Pantoprazole Sodium 40 mg BID IV 03/28/24 10:00 03/28/24 08:20 40 MG Patient Own Medication 1 DAILY PO 03/28/24 10:00 Sevelamer HCl 800 mg TIDWM PO 03/28/24 08:00 03/28/24 11:21 800 MG Ceftriaxone Sodium 50 ml @ 100 mls/hr DAILY@09 IV 03/29/24 09:00 Metronidazole 100 ml @ 100 mls/hr Q8HR IV 03/28/24 14:00 Examination Physical Examination General: Patient alert and oriented in person, place and time. Patient following commands. HEENT: Normocephalic, atraumatic, moist mucous membranes Respiratory/pulmonary: Clear lungs bilaterally, no associated crackles or wheezes. Cardiovascular: Normal heart sounds S1 and S2 with no associated murmurs Abdomen: Abdomen nondistended, there is no pain to palpation in any of the abdominal quadrants, no palpable masses. Extremities: There is no peripheral edema present at the lower extremities. Peripheral Pulses: 3+ Radial (R). 3+ Radial (L). 3+ Dorsalis pedis (R). 3+ Dorsalis pedis(L) Skin: No rashes or pruritus, there is no sacral edema present at this time. Neurological: Intact cranial nerves with no focal neurologic deficits laboratory and microbiology Laboratory Tests 03/28/24 12:25 03/28/24 08:00 Test 03/28/24 08:00 Range/Units Serum Glucose 115 H 74-106 mg/dL Problem List/Assessment/Plan Problem List/Assessment/Plan Assessment/Plan Generalized weakness likely due to severe anemia Severe anemia likely due to possible lower GI bleed Acute episode of diarrhea with hematochezia -initial hemoglobin was 6.3 -patient complained of profuse bloody diarrhea -ordered iron panel and ferritin, iron is normal range and ferritin is elevated -2 units of RBCs were transfused, most recent hemoglobin was 7.3 -stool occult came back positive -GI was consulted for possible lower GI bleed -Monitor Hb and Hct -chest x-ray was grossly unremarkable Possible acute diverticulitis -CT scan of the abdomen and pelvis showed mild colonic diverticulosis with early signs of acute diverticulitis -start IV metronidazole -start IV ceftriaxone -clear liquid diet ESRD on Hemodialysis (Sunday, and Sunday) -last BUN was 48, creatinine 10.29 -nephrology is on board -patient is scheduled for hemodialysis tomorrow -monitor kidney function -hold fluids at this time -continue sevelamer 800 mg t.i.d. Acute on chronic heart failure with reduced ejection fraction (HFrEF 25-30%) Hx of coronary artery disease s/p PTCA x2 -echocardiogram showed an LVEF of 25-30% with global hypokinesis of the left ventricle. There is no significant valvular abnormalities or pericardial effusion. -BNP came back at 612 -Start -Carvedilol 6.25mg BID -Ordered EKG and trops -Consulted Cardiology with new onset HFrEF Hyperkalemia -initial potassium was 5.7 -we gave hyperkalemia protocol with albuterol, Lokelma and insulin with dextrose -monitor electrolytes closely Primary hypertension -Carvedilol 6.25mg BID Dyslipidemia -Ordered lipid panel Restless leg syndrome -resumed home medication ropinirole 0.5mg daily -gabapentin 300 mg daily ACP, discussed with the patient at bedside for 20 minutes Goals of care discussed with the patient at bedside for >23min, FULL CODE Plan discussed with Plan discussed with: Patient My Orders My Orders Orders - YONI RDZ Procedure Category Date Status Time Clear Liq Diet DIET 03/28/24 Transmitted Breakfast * Gi D[facility] [employer] CONS 03/28/24 Transmitted 11:21 CC Plasma Assessment Blood Product Administration S: 0000 Date of Service: Mar 28, 2024 Billing Provider: YAN BABCOCK MD Common Visit Codes: [id number] INP/OBS CARE(HIGH) YONI RDZ RESIDENT Mar 28, 2024 13:40 YAN BABCOCK MD Apr 02, 2024 00:00
[2024-03-28 13:55] LABS: Triglycerides 148 mg/dL (< 150)
[2024-03-28 13:56] LABS: LDL Cholesterol 49 mg/dL (< 100)
[2024-03-28 13:57] LABS: Cholesterol 92 mg/dL (< 200)
[2024-03-28 14:02] LABS: HDL Cholesterol 21 mg/dL (40-59)
[2024-03-28] MEDS ORDERED: CLOP75TA70 PO (14:42)
[2024-03-28] MEDS ORDERED: LOSA-535 PO (14:42)
[2024-03-28] MEDS ORDERED: NIFE1TAB30 PO (14:42)
[2024-03-28] MEDS ORDERED: SEVE800T10 PO (14:42)
[2024-03-28] MEDS ORDERED: ALLO100T PO (14:42)
[2024-03-28] MEDS ORDERED: FERR1TAB17 PO (14:42)
[2024-03-28] MEDS ORDERED: ROPI2TAB27 PO (14:42)
[2024-03-28] MEDS ORDERED: GABA-1250 PO (14:42)
[2024-03-28] MEDS ORDERED: B-CO-5 OR (14:42)
[2024-03-28] MEDS ORDERED: CARV3.1240 PO (14:42)
[2024-03-28] MEDS ORDERED: CHOL20007 OR (14:42)
[2024-03-28] MEDS: metroNIDAZOLE 500MG/100ML 100 ML IV SCH (16:44)
--- NOTE | 2024-03-28 17:46 | DVHINCON2 ---
Date Seen: Mar 28, 2024 Referring Physician MD Malena resident Reason for Consultation New onset HFrEF, ESRD History of Present Illness This is a Persian-speaking 68-year-old male patient who presents to the emergency room with chief complaint of bloody diarrhea for two days. He comes to the emergency room for further evaluation. Cardiology is now being consulted at this time for "new onset HFrEF". Initial twelve lead electrocardiogram reveals normal sinus rhythm without any significant ST segment changes. The patient denies any cardiac symptoms at time of assessment. Initial troponin level of 24ng/L with flat trend thereafter. Significant past medical history includes congestive heart failure, hypertension, hyperlipidemia, end-stage renal disease on hemodialysis, CVA x2, restless legs syndrome, gout and morbid obesity. The patient is a very poor historian. Patient's two daughters at bedside are able to provide the patient's past medical history. Per patient's daughter, the patient has been previously diagnosed with congestive heart failure and sees a electrical manager at [facility]. She also reports that he has had a stress test in the past, which was normal. Of note, documentation from other providers' notes mention that the patient has had coronary artery disease with two stents placed. Patient and both daughters at bedside deny any previous history of coronary artery disease with stent placement. Past Medical History Past medical history reviewed. No other significant than mentioned above. Past Surgical History Left arm fistula Family History: Diabetes mellitus G8 MOTHER G8 FATHER Family History Family history reviewed. Social History Denies the use of tobacco, alcohol or illicit drugs. Allergies: Coded Allergies: Spironolactone (Verified Allergy, Unknown, 03/28/24) Home Meds Reported Medications Clopidogrel Bisulfate (CLOPIDOGREL) 75 Mg Tab, 75 MG PO DAILY for 30 Days, MG 03/28/24 Allopurinol (Allopurinol) 100 Mg Tab, 100 MG PO DAILY for 30 Days, MG 03/28/24 Carvedilol (Carvedilol) 3.125 Mg Tab, 3.125 MG PO BID for 30 Days, MG 03/28/24 Losartan Potassium (Losartan Potassium) 100 Mg Tab, 100 MG PO DAILY for 30 Days, MG 03/28/24 B-Complex W/ C & Folic Acid (Gabriella-Tammie) Tab, 60 MG OR DAILY, TAB 03/28/24 Ferric Citrate (Auryxia) 210 Mg Tab, 210 MG PO BID, TAB 03/28/24 Ropinirole Hydrochloride (Ropinirole Hcl) 2 Mg Tab, 2 MG PO DAILY, TAB 03/28/24 Nifedipine (Nifedipine Er) 60 Mg Tab, 1 TAB PO DAILY, #30 TAB 5 Refills 03/28/24 Cholecalciferol (VITAMIN D3) 2,000 Unit Tab, 5000 UNIT OR DAILY, TAB 03/28/24 Sevelamer Carbonate (Sevelamer Carbonate) 800 Mg Tab, 800 MG PO TID, TAB 03/28/24 Gabapentin (Gabapentin) 300 Mg Cap, 300 MG PO BID for 30 Days, MG 03/28/24 Home Meds Home medications reviewed. Current Medications Current Medications Medications (Trade) Dose Ordered Sig/Ryan Route PRN Reason Start Time Stop Time Status Last Admin Pantoprazole Sodium (Protonix) 40 mg BID IV 03/28/24 10:00 03/28/24 08:20 Patient Own Medication 1 DAILY PO 03/28/24 10:00 Sevelamer HCl (Renagel) 800 mg TIDWM PO 03/28/24 08:00 03/28/24 11:21 Ceftriaxone Sodium 50 ml @ 100 mls/hr DAILY@09 IV 03/29/24 09:00 Metronidazole 100 ml @ 100 mls/hr Q8HR IV 03/28/24 14:00 03/28/24 16:44 Carvedilol (Coreg Tablet) 6.25 mg Q12HR PO 03/28/24 22:00 Review of Systems Constitutional: No symptom reported Ears, Nose, & Throat: No symptom reported Eyes: No symptom reported Neurological: No symptoms reported Pulmonary/Respiratory: No symptoms reported Cardiovascular: No symptom reported Gastrointestinal: Bloody diarrhea Genitourinary: No symptom reported Musculoskeletal: No symptom reported Skin: No symptom reported Psychiatric: No symptom reported Endocrine: No symptom reported Hematologic/Lymphatic: No symptom reported Vital Signs Vital Signs Date Time Temp Pulse Resp B/P (MAP) Pulse Ox O2 Delivery O2 Flow Rate FiO2 03/28/24 17:00 98.1 68 17 142/75 (97) 98 98.1 03/28/24 08:00 Room Air* 0 21 Physical Exam General Appearance: Cooperative. Morbidly obese Pulmonary/Respiratory: Clear, bilateral breaths sounds. Cardiovascular/Chest: Regular rate and rhythm. Peripheral Pulses: 2+ Radial (R). 2+ Radial (L). 2+ Pedal (R). 2+ Pedal (L) Abdominal Exam: Normal bowel sounds. Ankle Exam: Negative ankle edema Lower extremities: Negative lower extremity edema Neuro/Mental Status: A/OX4, coherent. Thoughts/Psych: Normal thought pattern. Appropriate mood and affect. Good judgment and insight. Appearance: No acute distress. Skin Exam: Normal inspection. Normal color. Warm and dry. Labs/Diagnostic Data Labs Test 03/28/24 16:03 03/28/24 12:25 03/28/24 08:00 03/27/24 22:50 Range/Units Troponin I High Sensitivity 52 </=54 ng/L Hemoglobin 7.3 L 13.5-17.5 g/dL Hematocrit 21.8 L 41.0-53.0 % White Blood Count 4.6 4.4-10.8 10^3/uL Red Blood Count 2.38 L 4.5-5.90 10^6/uL Mean Corpuscular Volume 95.3 # 80.0-100.0 fL Mean Corpuscular Hemoglobin 31.6 28.0-32.0 pg Mean Corpuscular Hemoglobin Concent 33.2 32.0-36.0 g/dL Red Cell Distribution Width 15.8 H 11.8-14.3 % Platelet Count 131 L 140-450 10^3/uL Mean Platelet Volume 8.9 6.9-10.8 fL Neutrophils (%) (Auto) 63.1 37.0-80.0 % Lymphocytes (%) (Auto) 23.1 10.0-50.0 % Monocytes (%) (Auto) 11.8 0.0-12.0 % Eosinophils (%) (Auto) 1.4 0.0-7.0 % Basophils (%) (Auto) 0.6 0.0-2.0 % Neutrophils # (Auto) 2.9 1.6-8.6 10 ^3/uL Lymphocytes # (Auto) 1.1 0.4-5.4 10 ^3/uL Monocytes # (Auto) 0.5 0-1.3 10 ^3/uL Eosinophils # (Auto) 0.1 0-0.8 10 ^3/uL Basophils # (Auto) 0 0-0.2 10 ^3/uL Nucleated Red Blood Cells 0.0 % Reticulocyte Count (auto) 1.46 0.5-1.5 % Sodium Level 141 136-145 mmol/L Potassium Level 5.3 H 3.5-5.1 mmol/L Chloride Level 101 98-107 mmol/L Carbon Dioxide Level 31 20-31 mmol/L Anion Gap 9 5-15 Blood Urea Nitrogen 48 H 9-23 mg/dL Creatinine 10.29 *H 0.700-1.30 mg/dL Glomerular Filtration Rate Calc 5 >90 mL/min BUN/Creatinine Ratio 4.7 L 10.0-20.0 Serum Glucose 115 H 74-106 mg/dL Lactic Acid Level 1.3 0.4-2.0 mmol/L Calcium Level 9.3 8.7-10.4 mg/dL Ferritin 1575.4 H 22-322 ng/mL Lactate Dehydrogenase 119 L 120-246 U/L B-Type Natriuretic Peptide 612.07 0-100 pg/mL Triglycerides Level 148 < 150 mg/dL Cholesterol Level 92 < 200 mg/dL LDL Cholesterol 49 < 100 mg/dL HDL Cholesterol 21 L 40-59 mg/dL Vitamin B12 Level 184 L 211-911 pg/mL Folic Acid 19.02 >5.38 ng/mL POC Glucose 164 H 70-106 mg/dl Test 03/27/24 21:41 03/27/24 21:15 03/27/24 21:00 Range/Units Prothrombin Time 10.8 9.3-11.8 sec Prothrombin Time INR 1.02 0.9-1.15 Activated Partial Thromboplast Time 21.7 L 24.5-34.5 SEC Phosphorus Level 3.3 2.4-5.1 mg/dL Magnesium Level 2.4 1.6-2.6 mg/dL Total Bilirubin 0.5 0.2-1.0 mg/dL Aspartate Amino Transferase (AST) < 8 L 13-40 U/L Alanine Aminotransferase (ALT) < 9 7-40 U/L Alkaline Phosphatase 75 46-116 U/L Total Protein 6.0 5.7-8.2 g/dL Albumin 4.2 3.2-4.8 g/dL Lipase 24 12-53 U/L Thyroid Stimulating Hormone (TSH) 4.58 0.55-4.78 uIU/mL Iron Level 94 65-175 ug/dL Total Iron Binding Capacity 189 L 250-425 ug/dL Percent Iron Saturation 49.7 20-55 % Stool Occult Blood Positive Negative Stool Occult Blood Sample #3 Negative Assessment Acute on chronic HFrEF, NYHA class III Hypertension Hyperlipidemia Questionable coronary artery disease with PCI Severe anemia status post multiple PRBC transfusions GI bleed History of CVA x2 ESRD on HD Hyperkalemia Morbid obesity Plan/Recommendation We will continue with the following plan/recommendations (Dr. Nevarez): * Transthoracic echocardiogram reveals EF 25-30% * Initiate guideline directed medical therapy for CHF * Hold RUPESH/ARB/ARNI/SGLT2i/MRA given renal function * Initiate Hydralazine and Imdur * Strict intake and output, daily weights, maintain fluid restriction * BP control * Lipid-lowering agent * Cardiac surveillance Patient seen and examined at bedside with . Patient is a poor historian but his two daughters at bedside were able to answer all questions regarding patient's past medical history. It has been noted in other providers' documentation that the patient has coronary artery disease with two stents. The patient's daughters at bedside state that he has been seeing a electrical manager for the past 10 years at [facility] and he does not have any stents placed. The patient's daughter mentions that he has previously had a stress test, but denies any previous coronary angiogram. Continue with GDMT for CHF as renal function permits. No urgent need for ischemic workup at this time, as this can be done outpatient when patient more stable. The patient may eddie lify for ICD implantation if no improvement in EF within 3-6 months on GDMT. Thank you for allowing us to care for this patient. Please call with any questions or concerns. Critical care time spent: 40 minutes This medical document was created using an electronic medical record system with voice recognition software and computerized dictation system. Although this d ocument has been carefully reviewed, there might still be some phonetic and typographical errors. Occasional wrong-word or ``sound-alike substitutions may have occurred due to the inherent limitations of voice recognition software. These areas are purely typographical due to imperfections of the software programs and do not reflect any compromise in the patient's medical care. Please read the chart carefully and recognize, using context, where these substitutions have occurred. Plan discussed with: Patient, Daughter NYHA Physical activity limitations: Class3(Marked) ordinary (activity causes symtoms) Date of Service: Mar 28, 2024 Billing Provider: VISH YU Cardiology Common Codes: [id number] INP/OBS CARE (High) Cardiology Consultation Codes: [id number] CONSULT <45MIN VISH YU Mar 28, 2024 17:46
--- NOTE | 2024-03-28 18:39 | DVHINCON2 ---
Date of service: Mar 28, [address] Sykes Reason for Consultation Diarrhea rectal bleeding History of Present Illness This 68-year-old male presented to the emergency room with complaints of weakness and dizziness after dialysis. Patient also has got abdominal diarrhea as well as bright red blood in the rectum. He also had some mild low-grade fever and chills. Patient is on dialysis from hypertension and 3 times a week dialysis. Patient had ID in the past requiring stent placement. Because of the diarrhea the and the GI bleeding with low hemoglobin the reason for the GI consult. Patient apparently had a colonoscopy few years ago which was unrem arkable except for diverticulosis. Past Medical History Hypertension end-stage renal disease dyslipidemia ID renal disease Past Surgical History Stent placement Family History: Diabetes mellitus G8 MOTHER G8 FATHER Family History Noncontributory Social History Denies smoking or drinking Allergies: Coded Allergies: Spironolactone (Verified Allergy, Unknown, 03/28/24) Home Meds Reported Medications Clopidogrel Bisulfate (CLOPIDOGREL) 75 Mg Tab, 75 MG PO DAILY for 30 Days, MG 03/28/24 Allopurinol (Allopurinol) 100 Mg Tab, 100 MG PO DAILY for 30 Days, MG 03/28/24 Carvedilol (Carvedilol) 3.125 Mg Tab, 3.125 MG PO BID for 30 Days, MG 03/28/24 Losartan Potassium (Losartan Potassium) 100 Mg Tab, 100 MG PO DAILY for 30 Days, MG 03/28/24 B-Complex W/ C & Folic Acid (Gabriella-Tammie) Tab, 60 MG OR DAILY, TAB 03/28/24 Ferric Citrate (Auryxia) 210 Mg Tab, 210 MG PO BID, TAB 03/28/24 Ropinirole Hydrochloride (Ropinirole Hcl) 2 Mg Tab, 2 MG PO DAILY, TAB 03/28/24 Nifedipine (Nifedipine Er) 60 Mg Tab, 1 TAB PO DAILY, #30 TAB 5 Refills 03/28/24 Cholecalciferol (VITAMIN D3) 2,000 Unit Tab, 5000 UNIT OR DAILY, TAB 03/28/24 Sevelamer Carbonate (Sevelamer Carbonate) 800 Mg Tab, 800 MG PO TID, TAB 03/28/24 Gabapentin (Gabapentin) 300 Mg Cap, 300 MG PO BID for 30 Days, MG 03/28/24 Current Medications Current Medications Medications (Trade) Dose Ordered Sig/Ryan Route PRN Reason Start Time Stop Time Status Last Admin Pantoprazole Sodium (Protonix) 40 mg BID IV 03/28/24 10:00 03/28/24 08:20 Patient Own Medication 1 DAILY PO 03/28/24 10:00 Sevelamer HCl (Renagel) 800 mg TIDWM PO 03/28/24 08:00 03/28/24 11:21 Ceftriaxone Sodium 50 ml @ 100 mls/hr DAILY@09 IV 03/29/24 09:00 Metronidazole 100 ml @ 100 mls/hr Q8HR IV 03/28/24 14:00 03/28/24 16:44 Carvedilol (Coreg Tablet) 6.25 mg Q12HR PO 03/28/24 22:00 Review of Systems Noncontributory Vital Signs Vital Signs Date Time Temp Pulse Resp B/P (MAP) Pulse Ox O2 Delivery O2 Flow Rate FiO2 03/28/24 17:00 98.1 68 17 142/75 (97) 98 98.1 03/28/24 08:00 Room Air* 0 21 Physical Exam Averagely built and nourished male in no acute distress Vital stable Lungs clear ENT examination mild pallor no icterus Cardiovascular unremarkable Abdomen soft no tenderness no rigidity no guarding sounds normal Extremities unremarkable Labs/Diagnostic Data Labs Test 03/28/24 17:59 03/28/24 12:25 03/28/24 08:00 03/27/24 22:50 Range/Units Hemoglobin 7.3 L 13.5-17.5 g/dL Hematocrit 21.8 L 41.0-53.0 % White Blood Count 4.6 4.4-10.8 10^3/uL Red Blood Count 2.38 L 4.5-5.90 10^6/uL Mean Corpuscular Volume 95.3 # 80.0-100.0 fL Mean Corpuscular Hemoglobin 31.6 28.0-32.0 pg Mean Corpuscular Hemoglobin Concent 33.2 32.0-36.0 g/dL Red Cell Distribution Width 15.8 H 11.8-14.3 % Platelet Count 131 L 140-450 10^3/uL Mean Platelet Volume 8.9 6.9-10.8 fL Neutrophils (%) (Auto) 63.1 37.0-80.0 % Lymphocytes (%) (Auto) 23.1 10.0-50.0 % Monocytes (%) (Auto) 11.8 0.0-12.0 % Eosinophils (%) (Auto) 1.4 0.0-7.0 % Basophils (%) (Auto) 0.6 0.0-2.0 % Neutrophils # (Auto) 2.9 1.6-8.6 10 ^3/uL Lymphocytes # (Auto) 1.1 0.4-5.4 10 ^3/uL Monocytes # (Auto) 0.5 0-1.3 10 ^3/uL Eosinophils # (Auto) 0.1 0-0.8 10 ^3/uL Basophils # (Auto) 0 0-0.2 10 ^3/uL Nucleated Red Blood Cells 0.0 % Reticulocyte Count (auto) 1.46 0.5-1.5 % Sodium Level 141 136-145 mmol/L Potassium Level 5.3 H 3.5-5.1 mmol/L Chloride Level 101 98-107 mmol/L Carbon Dioxide Level 31 20-31 mmol/L Anion Gap 9 5-15 Blood Urea Nitrogen 48 H 9-23 mg/dL Creatinine 10.29 *H 0.700-1.30 mg/dL Glomerular Filtration Rate Calc 5 >90 mL/min BUN/Creatinine Ratio 4.7 L 10.0-20.0 Serum Glucose 115 H 74-106 mg/dL Lactic Acid Level 1.3 0.4-2.0 mmol/L Calcium Level 9.3 8.7-10.4 mg/dL Ferritin 1575.4 H 22-322 ng/mL Lactate Dehydrogenase 119 L 120-246 U/L B-Type Natriuretic Peptide 612.07 0-100 pg/mL Triglycerides Level 148 < 150 mg/dL Cholesterol Level 92 < 200 mg/dL LDL Cholesterol 49 < 100 mg/dL HDL Cholesterol 21 L 40-59 mg/dL Vitamin B12 Level 184 L 211-911 pg/mL Folic Acid 19.02 >5.38 ng/mL POC Glucose 164 H 70-106 mg/dl Test 03/27/24 21:41 03/27/24 21:15 03/27/24 21:00 Range/Units Prothrombin Time 10.8 9.3-11.8 sec Prothrombin Time INR 1.02 0.9-1.15 Activated Partial Thromboplast Time 21.7 L 24.5-34.5 SEC Phosphorus Level 3.3 2.4-5.1 mg/dL Magnesium Level 2.4 1.6-2.6 mg/dL Total Bilirubin 0.5 0.2-1.0 mg/dL Aspartate Amino Transferase (AST) < 8 L 13-40 U/L Alanine Aminotransferase (ALT) < 9 7-40 U/L Alkaline Phosphatase 75 46-116 U/L Total Protein 6.0 5.7-8.2 g/dL Albumin 4.2 3.2-4.8 g/dL Lipase 24 12-53 U/L Thyroid Stimulating Hormone (TSH) 4.58 0.55-4.78 uIU/mL Iron Level 94 65-175 ug/dL Total Iron Binding Capacity 189 L 250-425 ug/dL Percent Iron Saturation 49.7 20-55 % Stool Occult Blood Positive Negative Stool Occult Blood Sample #3 Negative Assessment 68-year-old with the complaints of rectal bleeding diarrhea hemoglobin was about seven has got a few episodes of diarrhea with blood patient apparently had some colonoscopy in the past which was unremarkable feeling better now without too much diarrhea this afternoon. Patient has got end-stage renal disease hypertension ID with status post stent placement with gout etc.. Impression possible diverticulitis with diarrhea or other pathology also can not be excluded Patient tolerating diet well and without any gross bleeding Plan/Recommendation We will recommend to advance diet slowly continue with the present regimen Monitor The hemoglobin closely If significant drop in hemoglobin or other symptom may need emergency workup including endoscopic evaluations otherwise we will recommend to do outpatient workup as necessary when he is more stable. Thank you Dr. Choi Plan discussed with: Patient ANNIE CHOI MD Mar 28, 2024 18:39
[2024-03-28] MEDS: CARVEDILOL 3.125 MG TAB PO SCH (22:25)
[2024-03-28] MEDS: hydrALAZINE HCL 25 MG TAB PO SCH (22:27)
[2024-03-29] VITALS (11 sets, daily range): BP systolic 130–162; BP diastolic 65–84; PULSE 66–80; RESP 12–20; TEMP 98–98.9; O2SAT 96–100
[2024-03-29] MEDS ORDERED: SODIUM CHL 0.9% 1000 ML BAG XX ONE (07:00)
[2024-03-29] MEDS: cefTRIAXone 1GM/50ML D5W 50 ML IV SCH (08:52)
[2024-03-29] MEDS: ISOSORBIDE MONONITRATE ER 60 MG TAB PO SCH (09:03)
[2024-03-29 11:16] LABS: Basophils # (auto) 0 10 ^3/uL (0-0.2); Eosinophils # (auto) 0.1 10 ^3/uL (0-0.8); Lymphocytes # (auto) 0.8 10 ^3/uL (0.4-5.4)
[2024-03-29 11:20] LABS: Basophils % (auto) 0.8 % (0.0-2.0); Eosinophils % (auto) 2.5 % (0.0-7.0); Hematocrit 19.5 % (41.0-53.0); Lymphocytes % (auto) 19.2 % (10.0-50.0); Mean Corpuscular Hemoglobin 32.6 pg (28.0-32.0); Mean Corpuscular Hgb Conc. 34.3 g/dL (32.0-36.0); Mean Corpuscular Volume 94.8 fL (80.0-100.0); Monocytes # (auto) 0.5 10 ^3/uL (0-1.3); Monocytes % (auto) 11.7 % (0.0-12.0); Neutrophils # (auto) 2.8 10 ^3/uL (1.6-8.6); Neutrophils % (auto) 65.8 % (37.0-80.0); Platelet Count (auto) 104 10^3/uL (140-450); Red Blood Cells 2.06 10^6/uL (4.5-5.90); Red Cell Distribution Width 15.7 % (11.8-14.3); White Blood Cell 4.3 10^3/uL (4.4-10.8)
[2024-03-29 11:32] LABS: Hemoglobin 6.7 g/dL (13.5-17.5)
[2024-03-29 11:35] LABS: Albumin 4.1 g/dL (3.2-4.8); Alkaline Phosphatase 73 U/L (46-116); Anion Gap 8 (5-15); Aspartate Aminotransferase 21 U/L (13-40); Calcium 9.4 mg/dL (8.7-10.4); Carbon Dioxide 28 mmol/L (20-31); Chloride 101 mmol/L (98-107); Magnesium 2.4 mg/dL (1.6-2.6); Sodium 137 mmol/L (136-145)
[2024-03-29 11:36] LABS: Bilirubin, Total 0.4 mg/dL (0.2-1.0); Total Protein 5.8 g/dL (5.7-8.2)
[2024-03-29 11:42] LABS: Glucose 97 mg/dL (74-106)
[2024-03-29 11:43] LABS: Alanine Aminotransferase < 9 U/L (7-40); Blood Urea Nitrogen 36 mg/dL (9-23); Potassium 5.7 mmol/L (3.5-5.1)
--- NOTE | 2024-03-29 12:07 | DVHPN2 ---
Progress Note - Dictate Date Seen: Mar 29, 2024 Has the PT tested + for MRSA If YES, has PT been informed?: No Medical Necessity Reason Pt with a Central, PICC or Fol: No Subjective Patient had some dark red blood again with diarrhea last night Some abdominal cramps No hematemesis vital signs Vital Sign Date Time Temp Pulse Resp B/P (MAP) Pulse Ox O2 Delivery O2 Flow Rate FiO2 03/29/24 08:44 98.1 67 18 149/78 (101) 96 98.1 03/29/24 08:00 Room Air* 0 21 Total Intake and Output 03/28/24 03/28/24 03/29/24 15:00 23:00 07:00 Intake Total 750 ml 100 ml Output Total 350 ml Balance 750 ml -250 ml medications Current Medications Medications Dose Ordered Sig/Ryan Route Start Time Stop Time Status Last Admin Dose Admin Pantoprazole Sodium 40 mg BID IV 03/28/24 10:00 03/29/24 08:57 40 MG Patient Own Medication 1 DAILY PO 03/28/24 10:00 Sevelamer HCl 800 mg TIDWM PO 03/28/24 08:00 03/29/24 08:52 800 MG Ceftriaxone Sodium 50 ml @ 100 mls/hr DAILY@09 IV 03/29/24 09:00 03/29/24 08:52 100 MLS/HR Metronidazole 100 ml @ 100 mls/hr Q8HR IV 03/28/24 14:00 03/29/24 05:51 100 MLS/HR Carvedilol 6.25 mg Q12HR PO 03/28/24 22:00 03/28/24 22:25 6.25 MG Hydralazine HCl 25 mg Q8HR PO 03/28/24 22:00 03/29/24 05:51 25 MG Isosorbide Mononitrate 30 mg DAILY PO 03/29/24 10:00 objective Abdomen is soft nontender patient is having dialysis now Hemoglobin has dropped to six from seven yesterday Because of the continued bleeding and the continue diarrhea we will recommend EGD and colon evaluation tomorrow to delineate the etiology of the continued GI bleeding Procedure risks benefits alternatives explained to the patient and agreeable for the same I will arrange for EGD colon tomorrow after bowel prep Thank you Dr. Choi laboratory and microbiology Laboratory Tests 03/29/24 10:59 Test 03/29/24 10:59 Range/Units Serum Glucose 97 74-106 mg/dL Assessment/Plan Patient with complaints of bleeding and diarrhea off dark red blood Patient is on dialysis Hemoglobin has dropped Possible GI bleeding to be considered? Etiology Plan Recommend EGD and colon evaluation after bowel prep tomorrow thank you Plan discussed with: Patient CC Plasma Assessment Blood Product Administration S: 0000 ANNIE CHOI MD Mar 29, 2024 12:07
[2024-03-29] MEDS: GOLYTELY 4L KIT PO ONE (15:14)
--- NOTE | 2024-03-29 15:39 | DVHPN2 ---
Progress Note - Dictate Date Seen: Mar 29, 2024 Has the PT tested + for MRSA If YES, has PT been informed?: No Medical Necessity Reason Pt with a Central, PICC or Fol: No Subjective Continue to have on and off diarrhea vital signs Vital Sign Date Time Temp Pulse Resp B/P (MAP) Pulse Ox O2 Delivery O2 Flow Rate FiO2 03/29/24 15:10 145/61 03/29/24 13:00 98.0 71 20 97 98.0 03/29/24 08:00 Room Air* 0 21 Total Intake and Output 03/28/24 03/28/24 03/29/24 15:00 23:00 07:00 Intake Total 750 ml 100 ml Output Total 350 ml Balance 750 ml -250 ml medications Current Medications Medications Dose Ordered Sig/Ryan Route Start Time Stop Time Status Last Admin Dose Admin Pantoprazole Sodium 40 mg BID IV 03/28/24 10:00 03/29/24 08:57 40 MG Patient Own Medication 1 DAILY PO 03/28/24 10:00 03/29/24 12:31 1 Sevelamer HCl 800 mg TIDWM PO 03/28/24 08:00 03/29/24 12:33 800 MG Ceftriaxone Sodium 50 ml @ 100 mls/hr DAILY@09 IV 03/29/24 09:00 03/29/24 08:52 100 MLS/HR Metronidazole 100 ml @ 100 mls/hr Q8HR IV 03/28/24 14:00 03/29/24 15:09 100 MLS/HR Carvedilol 6.25 mg Q12HR PO 03/28/24 22:00 03/28/24 22:25 6.25 MG Hydralazine HCl 25 mg Q8HR PO 03/28/24 22:00 03/29/24 15:10 25 MG Isosorbide Mononitrate 30 mg DAILY PO 03/29/24 10:00 objective Alert and oriented 3 NAD Lungs CTA CV RR, no pericardial rub Abdomen sot NT No edema laboratory and microbiology Laboratory Tests 03/29/24 10:59 Test 03/29/24 10:59 Range/Units Serum Glucose 97 74-106 mg/dL Problem List 1 ESRD. Stable 2 GI Bleeding 3 Anemia 4 HTN 5 DM2 Patient had HD earlier today without heparin 1 L fluid removed Next HD on TTS schedule Plan discussed with: Patient CC Plasma Assessment Blood Product Administration S: 0000 VERA DUMONT,VITA M MD Mar 29, 2024 15:39
--- NOTE | 2024-03-29 15:59 | DVHPNRES ---
Progress Note Date Seen: Mar 29, 2024 Resident Creating Document: YONI RDZ RESIDENT Has the PT tested + for MRSA If YES, has PT been informed?: No Medical Necessity Reason Pt with a Central, PICC or Fol: No Subjective Review of Systems This is a 68-year-old male with past medical history of hypertension, dyslipidemia, ESRD dialysis 3 times a week, myocardial infarction s/p PCI x2 stents (1 year ago, per previous records), gout, restless leg syndrome, who presented to the ED due to bloody diarrhea. According to the patient, he started having bloody diarrhea in the evening of 03/26/2023, The patient reported more than 10 bowel movements overnight. Per patient, he missed his dialysis session on Sunday and after the completion of his dialysis session on with removal of 3 L of fluid, he noticed increasing lightheadedness which is what prompted this visit to the hospital. Denies having similar symptoms in the past. On admission he was found to have any hemoglobin of 6.3 for which 2 units of red blood cells were transfused. BUN and creatinine were significantly elevated in the setting of end-stage renal disease. GI was consulted for possible lower GI bleed. Upon my examination, the patient denied chest pain, shortness of breath, abdominal pain, dizziness or weakness. The patient was admitted for further stabilization of his hemoglobin and further assess the possible cause. Patient seen and examined at bedside. The patient is alert and oriented in person, place and time. Patient was lying in bed without any complications. The patient reports mild generalized weakness but otherwise states that feels well overall. The patient reported an overnight episode of diarrhea with blood but a recent episode of diarrhea this morning was without blood. Hemoglobin came this morning at 6.7 for which 1 unit of red blood cells was transfused. The patient underwent hemodialysis in which they removed 1 L of fluids. Patient was hyperkalemic but was not corrected at this time since the patient was on hemodialysis at that time. GI saw the patient and determine that they will perform EGD and colonoscopy tomorrow after bowel preparation. Continue monitoring hemoglobin and hematocrit at this time. Continue IV ceftriaxone and metronidazole and rest of current medical management for heart failure exacerbation with reduced ejection fraction. ROS Constitutional: Reports mild generalized weakness and fatigue. Denies weight loss, fever and chills. HEENT: Denies changes in vision and hearing. Respiratory: Denies shortness of breath and cough Cardiovascular: Denies chest discomfort or palpitations GI: Denies abdominal pain, nausea, vomiting and diarrhea. : Denies dysuria and urinary frequency. Musculoskeletal: Denies myalgias and joint pain Skin: Denies rash and pruritus. Neurological: Denies dizziness, headache, vision or hearing problems Objective vital signs Vital Sign Date Time Temp Pulse Resp B/P (MAP) Pulse Ox O2 Delivery O2 Flow Rate FiO2 03/29/24 15:10 145/61 03/29/24 13:00 98.0 71 20 97 98.0 03/29/24 08:00 Room Air* 0 21 Total Intake and Output 03/28/24 03/28/24 03/29/24 15:00 23:00 07:00 Intake Total 750 ml 100 ml Output Total 350 ml Balance 750 ml -250 ml medications Current Medications Medications Dose Ordered Sig/Ryan Route Start Time Stop Time Status Last Admin Dose Admin Pantoprazole Sodium 40 mg BID IV 03/28/24 10:00 03/29/24 08:57 40 MG Patient Own Medication 1 DAILY PO 03/28/24 10:00 03/29/24 12:31 1 Sevelamer HCl 800 mg TIDWM PO 03/28/24 08:00 03/29/24 12:33 800 MG Ceftriaxone Sodium 50 ml @ 100 mls/hr DAILY@09 IV 03/29/24 09:00 03/29/24 08:52 100 MLS/HR Metronidazole 100 ml @ 100 mls/hr Q8HR IV 03/28/24 14:00 03/29/24 15:09 100 MLS/HR Carvedilol 6.25 mg Q12HR PO 03/28/24 22:00 03/28/24 22:25 6.25 MG Hydralazine HCl 25 mg Q8HR PO 03/28/24 22:00 03/29/24 15:10 25 MG Isosorbide Mononitrate 30 mg DAILY PO 03/29/24 10:00 Examination Physical Examination General: Patient alert and oriented in person, place and time. Patient following commands. HEENT: Normocephalic, atraumatic, moist mucous membranes Respiratory/pulmonary: Clear lungs bilaterally, no associated crackles or wheezes. Cardiovascular: Normal heart sounds S1 and S2 with no associated murmurs Abdomen: Abdomen nondistended, there is no pain to palpation in any of the abdominal quadrants, no palpable masses. Extremities: There is no peripheral edema present at the lower extremities. Peripheral Pulses: 3+ Radial (R). 3+ Radial (L). 3+ Dorsalis pedis (R). 3+ Dorsalis pedis(L) Skin: No rashes or pruritus, there is no sacral edema present at this time. Neurological: Intact cranial nerves with no focal neurologic deficits laboratory and microbiology Laboratory Tests 03/29/24 10:59 Test 03/29/24 10:59 Range/Units Serum Glucose 97 74-106 mg/dL Microbiology Date/Time Source Procedure Growth Status 03/27/24 21:41 Blood Blood Culture - Preliminary NO GROWTH AFTER 24 HOURS OF INCUBATION. Resulted Problem List/Assessment/Plan Problem List/Assessment/Plan Assessment/Plan Generalized weakness likely due to severe anemia Severe anemia likely due to possible lower GI bleed Acute episode of diarrhea with hematochezia -initial hemoglobin was 6.3 -patient complained of profuse bloody diarrhea -ordered iron panel and ferritin, iron is normal range and ferritin is elevated -2 units of RBCs were transfused, most recent hemoglobin was 7.3 -today on 03/29/2024 hemoglobin was 6.7 and 1 unit of red blood cells was transfused. -hemodialysis performed on 03/29/2024 removing 1 L of fluids -GI assessed the patient and determine that they will perform EGD/colonoscopy tomorrow -stool occult came back positive -GI on board -Monitor Hb and Hct -chest x-ray was grossly unremarkable Possible acute diverticulitis -CT scan of the abdomen and pelvis showed mild colonic diverticulosis with early signs of acute diverticulitis -continue IV metronidazole -continue IV ceftriaxone -clear liquid diet -NPO after midnight ESRD on Hemodialysis (Sunday, and Sunday) -last BUN was 48, creatinine 10.29 -nephrology is on board -patient is scheduled for hemodialysis tomorrow -monitor kidney function -hold fluids at this time -continue sevelamer 800 mg t.i.d. -patient underwent hemodialysis today and 1 L of fluid was removed. Acute on chronic heart failure with reduced ejection fraction (HFrEF 25-30%) Hx of coronary artery disease s/p PTCA x2 -echocardiogram showed an LVEF of 25-30% with global hypokinesis of the left ventricle. There is no significant valvular abnormalities or pericardial effusion. -BNP came back at 612 -continue Carvedilol 6.25mg BID -Ordered EKG and trops which are trending up -Consulted Cardiology with new onset HFrEF NSTEMI type 2 likely due to above -trend troponins -EKG showed sinus rhythm with no ST segment elevation or depression at this time. No chest pain/discomfort reported by the patient -cardiology is on board. Hyperkalemia -initial potassium was 5.7 -we gave hyperkalemia protocol with albuterol, Lokelma and insulin with dextrose -monitor electrolytes closely -patient underwent hemodialysis today and 1 L of fluid was removed. Primary hypertension -Carvedilol 6.25mg BID Dyslipidemia -Ordered lipid panel Restless leg syndrome -resumed home medication ropinirole 0.5mg daily -gabapentin 300 mg daily Goals of care discussed with the patient at bedside for >23min, FULL CODE Plan discussed with Dr. Walters Plan discussed with: Patient My Orders My Orders Orders - YONI RDZ Procedure Category Date Status Time Aborh Type BBK 03/29/24 In Process 13:11 Antibody Screen BBK 03/29/24 In Process 13:11 CC Plasma Assessment Blood Product Administration S: 0000 YONI RDZ RESIDENT Mar 29, 2024 15:59
--- NOTE | 2024-03-29 17:21 | DVHPN2 ---
Consult Progress Note Subjective Other Systems: Patient remains in normal sinus rhythm on cardiac monitor technician No cardiac symptoms at time of assessment. Objective vital signs Vital Sign Date Time Temp Pulse Resp B/P (MAP) Pulse Ox O2 Delivery O2 Flow Rate FiO2 03/29/24 16:55 98.9 66 16 139/78 98.9 03/29/24 16:42 99 03/29/24 08:00 Room Air* 0 21 Total Intake and Output 03/28/24 03/28/24 03/29/24 15:00 23:00 07:00 Intake Total 750 ml 100 ml Output Total 350 ml Balance 750 ml -250 ml medications Current Medications Medications Dose Ordered Sig/Ryan Route Start Time Stop Time Status Last Admin Dose Admin Pantoprazole Sodium 40 mg BID IV 03/28/24 10:00 03/29/24 08:57 40 MG Patient Own Medication 1 DAILY PO 03/28/24 10:00 03/29/24 12:31 1 Sevelamer HCl 800 mg TIDWM PO 03/28/24 08:00 03/29/24 12:33 800 MG Ceftriaxone Sodium 50 ml @ 100 mls/hr DAILY@09 IV 03/29/24 09:00 03/29/24 08:52 100 MLS/HR Metronidazole 100 ml @ 100 mls/hr Q8HR IV 03/28/24 14:00 03/29/24 15:09 100 MLS/HR Carvedilol 6.25 mg Q12HR PO 03/28/24 22:00 03/28/24 22:25 6.25 MG Hydralazine HCl 25 mg Q8HR PO 03/28/24 22:00 03/29/24 15:10 25 MG Isosorbide Mononitrate 30 mg DAILY PO 03/29/24 10:00 03/29/24 16:13 30 MG Examination: GENERAL:Normal, LUNGS:Normal, CVS:Normal, NEURO:Normal laboratory and microbiology Laboratory Tests 03/29/24 10:59 Test 03/29/24 10:59 Range/Units Serum Glucose 97 74-106 mg/dL Problem List/Assessment/Plan Problem List/Assessment/Plan NSTEMI, rule out type I Acute on chronic HFrEF, NYHA class III Hypertension Hyperlipidemia Questionable coronary artery disease with PCI Severe anemia status post multiple PRBC transfusions GI bleed History of CVA x2 ESRD on HD Hyperkalemia Morbid obesity Plan/Recommendation (Dr. Nevarez): * Transthoracic echocardiogram reveals EF 25-30% * Initiate guideline directed medical therapy for CHF * Hold RUPESH/ARB/ARNI/SGLT2i/MRA given renal function * Continue Hydralazine and Imdur * Strict intake and output, daily weights, maintain fluid restriction * BP control * Lipid-lowering agent * Cardiac surveillance Patient seen and examined at bedside with . Today, the patient's troponin level was noted to increase (from 255 to 3605, now 4053). Questionable NSTEMI type 1. The patient also noted to have elevated potassium level 5.7 and decreased hemoglobin level of 6.7. At this time, patient is not a candidate to undergo coronary angiogram given unstable hemoglobin requiring PRBC transfusion. We will recommend that the patient be seen and worked up by Gastroenterology prior to any invasive cardiac procedures. The patient denies any cardiac symptoms at time of assessment. We will also recommend to closely monitor hemoglobin and hematocrit as well as potassium level. Ideally, the patient's hemoglobin should be above 8.0. Thank you for allowing us to care for this patient. Please call with any questions or concerns. This medical document was created using an electronic medical record system with voice recognition software and computerized dictation system. Although this document has been carefully reviewed, there might still be some phonetic and typographical errors. Occasional wrong-word or ``sound-alike substitutions may have occurred due to the inherent limitations of voice recognition software. These areas are purely typographical due to imperfections of the software programs and do not reflect any compromise in the patient's medical care. Please read the chart carefully and recognize, using context, where these substitutions have occurred. Plan discussed with: Patient CC Plasma Assessment Blood Product Administration S: 0000 Date of Service: Mar 29, 2024 Billing Provider: VISH YU Common Visit Codes: [id number] INP/OBS CARE(HIGH) VISH YU Mar 29, 2024 17:21
[2024-03-29] MEDS: BISACODYL 5 MG EC TAB PO ONE (18:08)
[2024-03-29 19:32] LABS: Hematocrit 22.6 % (41.0-53.0); Hemoglobin 7.7 g/dL (13.5-17.5)
[2024-03-29] MEDS: EPOETIN ALFA-EPBX 10,000 UNIT/1ML VIAL SC ONE (22:31)
[2024-03-30] VITALS (9 sets, daily range): BP systolic 137–182; BP diastolic 74–89; PULSE 73–100; RESP 16–20; TEMP 97.8–98.9; O2SAT 93–100
[2024-03-30] MEDS: hydrALAZINE HCL 20 MG/ML VL IV PRN (02:46)
[2024-03-30 06:52] LABS: Basophils # (auto) 0 10 ^3/uL (0-0.2); Basophils % (auto) 0.5 % (0.0-2.0); Eosinophils # (auto) 0.1 10 ^3/uL (0-0.8); Hematocrit 23.8 % (41.0-53.0); Lymphocytes # (auto) 0.6 10 ^3/uL (0.4-5.4); Lymphocytes % (auto) 12.9 % (10.0-50.0); Mean Corpuscular Hemoglobin 32.2 pg (28.0-32.0); Mean Corpuscular Hgb Conc. 33.6 g/dL (32.0-36.0); Mean Corpuscular Volume 95.9 fL (80.0-100.0); Monocytes # (auto) 0.5 10 ^3/uL (0-1.3); Monocytes % (auto) 10.5 % (0.0-12.0); Neutrophils # (auto) 3.4 10 ^3/uL (1.6-8.6); Neutrophils % (auto) 74.1 % (37.0-80.0); Platelet Count (auto) 129 10^3/uL (140-450); Red Blood Cells 2.49 10^6/uL (4.5-5.90); Red Cell Distribution Width 15.2 % (11.8-14.3); White Blood Cell 4.6 10^3/uL (4.4-10.8)
[2024-03-30 07:13] LABS: Albumin 3.9 g/dL (3.2-4.8); Alkaline Phosphatase 73 U/L (46-116); Anion Gap 12 (5-15); BUN/Creatinine Ratio 2.8 (10.0-20.0); Blood Urea Nitrogen 22 mg/dL (9-23); Calcium 9.8 mg/dL (8.7-10.4); Carbon Dioxide 27 mmol/L (20-31); Chloride 98 mmol/L (98-107); Glucose 101 mg/dL (74-106); Magnesium 2.1 mg/dL (1.6-2.6); Potassium 4.5 mmol/L (3.5-5.1); Sodium 137 mmol/L (136-145)
[2024-03-30 07:14] LABS: Aspartate Aminotransferase 23 U/L (13-40); Bilirubin, Total 0.6 mg/dL (0.2-1.0)
[2024-03-30 07:25] LABS: Alanine Aminotransferase < 9 U/L (7-40); Total Protein 5.7 g/dL (5.7-8.2)
[2024-03-30] MEDS ORDERED: PROPOFOL 10 MG/ML 20 ML IV ONE (09:28)
[2024-03-30] MEDS ORDERED: KETAMINE 50mg/ML 1ml syringe ONE (09:35)
--- NOTE | 2024-03-30 10:05 | DVHOP2 ---
Operative Report DATE OF PROCEDURE: 03/30/24 INDICATIONS FOR THE PROCEDURE: Anemia and GI bleeding PROCEDURE PERFORMED: 1. Esophagogastroduodenoscopy and biopsy POSTOPERATIVE DIAGNOSIS: Duodenitis without any gross bleeding No ulcers no mass lesion small biopsy done for H pylori from the stomach INFORMED CONSENT: The risks and benefits and alternatives were explained to the patient and informed consent was obtained. PROCEDURE IN DETAIL: The patient was kept NPO after midnight Added risks because of the hot problems as well as the renal problems were all discussed with the patient and agreeable for the same This week case was also discussed with cardiology who recommended to do the procedure with caution . In the OR procedure was done under MAC anesthesiologist. Olympus gastroscope was passed through the oropharynx into the stomach and the duodenum, and the findings were as follows. Esophagus: No hiatal hernia no esophagitis no ulcers no varices no bleeding Stomach: Fundus: Normal Body and antrum Normal small biopsy taken to ensure there was no H. pylori Pylorus normal Duodenum Mild duodenitis without any gross bleeding no ulcers no erosions no mass lesions Endoscopic impression Mild duodenitis without any ulcers or active bleeding No active bleeding seen at this time Suggestions Await the biopsy results for H pylori Symptomatic treatment with Pepcid or Protonix as needed Thank you for asking me to take part in the care of this pleasant patient ANNIE Nunes MD Mar 30, 2024 10:05
--- NOTE | 2024-03-30 10:12 | DVHOP2 ---
Operative Report DATE OF PROCEDURE: 03/30/24 INDICATIONS FOR THE PROCEDURE: Rectal bleeding anemia PROCEDURE PERFORMED: Colonoscopy POSTOPERATIVE DIAGNOSIS: Diverticulosis of sigmoid descending as well as ascending colon Internal hemorrhoids Mild erythema around the mouth of one of the diverticulum in the ascending colon without any gross bleeding No ulcers no mass lesions no active bleeding seen INFORMED CONSENT: The risks and benefits and alternatives were explained to the patient and informed consent was obtained. PROCEDURE IN DETAIL: The patient was kept NPO after midnight. The added risk with a cardiac problem as well as the renal problems were all discussed with the patient and agreeable for the same Procedure plan was also discussed with cardiology who agreed with the plan also for endoscopy with caution Procedure was done under MAC Olympus colonoscope was passed through the rectum all the way up to cecum. Cecum, ascending colon, hepatic flexure, transverse colon, splenic flexure, descending colon, and sigmoid colon were all visualized and the findings were as follows: Findings: Moderate diverticulosis of the sigmoid descending transverse as well as ascending colon more in the sigmoid as well as ascending colon One of the small diverticula in the ascending colon had some little erythema around without any gross bleeding , There were internal hemorrhoids seen No mass lesions no active bleeding seen at this time ENDOSCOPIC IMPRESSION: Diverticulosis of the colon especially the sigmoid and the ascending colon SUGGESTIONS: Watch for any active bleeding and monitor the hemoglobin closely Clear liquid diet and advance slowly to soft diet to low residue diet If bleeding persist may need further evaluations including bleeding scan angiogram etc. Probable source of bleeding is possibly the diverticulae though no active bleeding seen now Thank you ANNIE Nunes MD Mar 30, 2024 10:12
--- NOTE | 2024-03-30 12:56 | DVHPN2 ---
Progress Note - Dictate Date Seen: Mar 30, 2024 Has the PT tested + for MRSA If YES, has PT been informed?: No Medical Necessity Reason Pt with a Central, PICC or Fol: No Subjective Continue to have on and off diarrhea vital signs Vital Sign Date Time Temp Pulse Resp B/P (MAP) Pulse Ox O2 Delivery O2 Flow Rate FiO2 03/30/24 10:27 75 12 150/71 (97) 99 03/30/24 10:20 Room Air 0 03/30/24 09:57 98.8 98.8 03/30/24 08:00 21 Total Intake and Output 03/29/24 03/29/24 03/30/24 15:00 23:00 07:00 Intake Total 50 ml 1350 ml 100 ml Output Total 250 ml Balance 50 ml 1100 ml 100 ml medications Current Medications Medications Dose Ordered Sig/Ryan Route Start Time Stop Time Status Last Admin Dose Admin Pantoprazole Sodium 40 mg BID IV 03/28/24 10:00 03/29/24 21:19 40 MG Sevelamer HCl 800 mg TIDWM PO 03/28/24 08:00 03/30/24 12:34 800 MG Ceftriaxone Sodium 50 ml @ 100 mls/hr DAILY@09 IV 03/29/24 09:00 03/29/24 08:52 100 MLS/HR Metronidazole 100 ml @ 100 mls/hr Q8HR IV 03/28/24 14:00 03/30/24 05:36 100 MLS/HR Carvedilol 6.25 mg Q12HR PO 03/28/24 22:00 03/29/24 21:20 6.25 MG Hydralazine HCl 25 mg Q8HR PO 03/28/24 22:00 03/30/24 05:36 25 MG Isosorbide Mononitrate 30 mg DAILY PO 03/29/24 10:00 03/29/24 16:13 30 MG Hydralazine HCl 10 mg Q6HP PRN IV 03/30/24 02:30 03/30/24 02:46 10 MG Patient Own Medication 1 HS PO 03/30/24 22:00 Heparin Sodium/ Dextrose 250 ml @ 10 mls/hr Q24H IV 03/30/24 12:00 objective Alert and oriented 3 NAD Lungs CTA CV RR, no pericardial rub Abdomen sot NT No edema laboratory and microbiology Laboratory Tests 03/30/24 06:08 Test 03/30/24 06:08 Range/Units Serum Glucose 101 74-106 mg/dL Problem List 1 ESRD. Stable 2 GI Bleeding 3 Anemia Hb, dropped again 4 HTN 5 DM2 6 Elevated troponin, demand ischemia, cardiology following Next HD on TTS schedule GI work up EGD and colonoscopy Transfuse PRBC to keep Hb > 8 Plan discussed with: Patient CC Plasma Assessment Blood Product Administration S: 0000 VITA DEL TORO MD Mar 30, 2024 12:56
--- NOTE | 2024-03-30 13:42 | DVHPN2 ---
Consult Progress Note Subjective Other Systems: The patient denies any cardiac symptoms at time of assessment. Objective vital signs Vital Sign Date Time Temp Pulse Resp B/P (MAP) Pulse Ox O2 Delivery O2 Flow Rate FiO2 03/30/24 10:27 75 12 150/71 (97) 99 03/30/24 10:20 Room Air 0 03/30/24 09:57 98.8 98.8 03/30/24 08:00 21 Total Intake and Output 03/29/24 03/29/24 03/30/24 15:00 23:00 07:00 Intake Total 50 ml 1350 ml 100 ml Output Total 250 ml Balance 50 ml 1100 ml 100 ml medications Current Medications Medications Dose Ordered Sig/Ryan Route Start Time Stop Time Status Last Admin Dose Admin Pantoprazole Sodium 40 mg BID IV 03/28/24 10:00 03/29/24 21:19 40 MG Sevelamer HCl 800 mg TIDWM PO 03/28/24 08:00 03/30/24 12:34 800 MG Ceftriaxone Sodium 50 ml @ 100 mls/hr DAILY@09 IV 03/29/24 09:00 03/29/24 08:52 100 MLS/HR Metronidazole 100 ml @ 100 mls/hr Q8HR IV 03/28/24 14:00 03/30/24 05:36 100 MLS/HR Carvedilol 6.25 mg Q12HR PO 03/28/24 22:00 03/29/24 21:20 6.25 MG Hydralazine HCl 25 mg Q8HR PO 03/28/24 22:00 03/30/24 05:36 25 MG Isosorbide Mononitrate 30 mg DAILY PO 03/29/24 10:00 03/29/24 16:13 30 MG Hydralazine HCl 10 mg Q6HP PRN IV 03/30/24 02:30 03/30/24 02:46 10 MG Patient Own Medication 1 HS PO 03/30/24 22:00 Heparin Sodium/ Dextrose 250 ml @ 10 mls/hr Q24H IV 03/30/24 12:00 Examination: GENERAL:Normal, LUNGS:Normal, CVS:Normal, NEURO:Normal laboratory and microbiology Laboratory Tests 03/30/24 06:08 Test 03/30/24 06:08 Range/Units Serum Glucose 101 74-106 mg/dL Problem List/Assessment/Plan Problem List/Assessment/Plan NSTEMI, rule out type I Acute on chronic HFrEF, NYHA class III Hypertension Hyperlipidemia Questionable coronary artery disease with PCI Severe anemia status post multiple PRBC transfusions Rule out GI bleed History of CVA x2 ESRD on HD Hyperkalemia Morbid obesity Plan/Recommendation (Dr. Nevarez): * Transthoracic echocardiogram reveals EF 25-30% * Continue guideline directed medical therapy for CHF * Hold RUPESH/ARB/ARNI/SGLT2i/MRA given renal function * Continue Hydralazine and Imdur * Strict intake and output, daily weights, maintain fluid restriction * Heparin drip per pharmacy protocol; closely monitor H&H * BP control * Lipid-lowering agent * Cardiac surveillance Patient seen and examined at bedside with . The patient underwent a colonoscopy today (03/30/24), in which the patient was found to have diverticulosis of the sigmoid descending as well as ascending colon and internal hemorrhoids. No ulcers or mass lesions or active bleed were found per Gastroenterology report. Spoke with , who states that the patient may proceed with inpatient ischemic workup. At this time, we will initiate the patient on a heparin drip and closely monitor hemoglobin and hematocrit levels. Plan for possible cardiac catheterization if no signs of active bleeding occur. The procedure was discussed with the patient full detail including risks and benefits. Risks include but are not limited to bleeding, contrast induced nephropathy, stroke, and even . The patient understands and is agreeable to undergo the procedure. We will schedule the patient for a possible coronary angiogram with left heart catheterization within the next 1-2 days depending on hemodynamic stability. Thank you for allowing us to care for this patient. Please call with any questions or concerns. This medical document was created using an electronic medical record system with voice recognition software and computerized dictation system. Although this document has been carefully reviewed, there might still be some phonetic and typographical errors. Occasional wrong-word or ``sound-alike substitutions may have occurred due to the inherent limitations of voice recognition software. These areas are purely typographical due to imperfections of the software programs and do not reflect any compromise in the patient's medical care. Please read the chart carefully and recognize, using context, where these substitutions have occurred. Plan discussed with: Patient CC Plasma Assessment Blood Product Administration S: 0000 Date of Service: Mar 30, 2024 Billing Provider: VISH YU Common Visit Codes: [id number] INP/OBS CARE(HIGH) VISH YU Mar 30, 2024 13:42
[2024-03-30 14:19] LABS: Basophils # (auto) 0 10 ^3/uL (0-0.2); Basophils % (auto) 0.7 % (0.0-2.0); Eosinophils # (auto) 0.1 10 ^3/uL (0-0.8); Eosinophils % (auto) 2.6 % (0.0-7.0); Hematocrit 23.4 % (41.0-53.0); Hemoglobin 7.9 g/dL (13.5-17.5); Lymphocytes # (auto) 0.7 10 ^3/uL (0.4-5.4); Lymphocytes % (auto) 18.5 % (10.0-50.0); Mean Corpuscular Hemoglobin 32.3 pg (28.0-32.0); Mean Corpuscular Hgb Conc. 33.8 g/dL (32.0-36.0); Mean Corpuscular Volume 95.6 fL (80.0-100.0); Monocytes # (auto) 0.5 10 ^3/uL (0-1.3); Monocytes % (auto) 13.1 % (0.0-12.0); Neutrophils # (auto) 2.6 10 ^3/uL (1.6-8.6); Neutrophils % (auto) 65.1 % (37.0-80.0); Platelet Count (auto) 122 10^3/uL (140-450); Red Blood Cells 2.45 10^6/uL (4.5-5.90); Red Cell Distribution Width 15.1 % (11.8-14.3); White Blood Cell 3.9 10^3/uL (4.4-10.8)
[2024-03-30 14:36] LABS: INR 1.02 (0.9-1.15); Partial Thromboplastin Time 32.5 SEC (24.5-34.5); Prothrombin Time 10.8 sec (9.3-11.8)
[2024-03-30] MEDS: HEPARIN DRIP/D5W 100UNITS/ML 250 ML IV SCH (15:31)
--- NOTE | 2024-03-30 15:43 | DVHPNRES ---
Progress Note Date Seen: Mar 30, 2024 Resident Creating Document: GETACHEW MAI RESIDENT Has the PT tested + for MRSA If YES, has PT been informed?: No Medical Necessity Reason Pt with a Central, PICC or Fol: No Subjective Review of Systems This is a 68-year-old male with past medical history of hypertension, dyslipidemia, ESRD dialysis 3 times a week, myocardial infarction s/p PCI x2 stents (1 year ago, per previous records), gout, restless leg syndrome, who presented to the ED due to bloody diarrhea. According to the patient, he started having bloody diarrhea in the evening of 03/26/2023, The patient reported more than 10 bowel movements overnight. Per patient, he missed his dialysis session on Sunday and after the completion of his dialysis session on with removal of 3 L of fluid, he noticed increasing lightheadedness which is what prompted this visit to the hospital. Denies having similar symptoms in the past. On admission he was found to have any hemoglobin of 6.3 for which 2 units of red blood cells were transfused. BUN and creatinine were significantly elevated in the setting of end-stage renal disease. GI was consulted for possible lower GI bleed. Upon my examination, the patient denied chest pain, shortness of breath, abdominal pain, dizziness or weakness. The patient was admitted for further stabilization of his hemoglobin and further assess the possible cause. Patient was seen and examined on the bedside. He is alert, oriented x3. H/H 8/23.8 after 2 units of blood transfusion. Patient had hemodialysis yesterday and urea/craeatinine today 22/7.74. He underwent EGD and colonoscopy today and there was no active bleeding point according to GI. Troponin was up trending and Cardiology stated IV heparin drip and possible left heart catheterization on Sunday. Nephrology recommended HD on TTS schedule. Objective vital signs Vital Sign Date Time Temp Pulse Resp B/P (MAP) Pulse Ox O2 Delivery O2 Flow Rate FiO2 03/30/24 10:27 75 12 150/71 (97) 99 03/30/24 10:20 Room Air 0 03/30/24 09:57 98.8 98.8 03/30/24 08:00 21 Total Intake and Output 03/29/24 03/29/24 03/30/24 15:00 23:00 07:00 Intake Total 50 ml 1350 ml 100 ml Output Total 250 ml Balance 50 ml 1100 ml 100 ml medications Current Medications Medications Dose Ordered Sig/Ryan Route Start Time Stop Time Status Last Admin Dose Admin Pantoprazole Sodium 40 mg BID IV 03/28/24 10:00 03/29/24 21:19 40 MG Sevelamer HCl 800 mg TIDWM PO 03/28/24 08:00 03/30/24 12:34 800 MG Ceftriaxone Sodium 50 ml @ 100 mls/hr DAILY@09 IV 03/29/24 09:00 03/29/24 08:52 100 MLS/HR Metronidazole 100 ml @ 100 mls/hr Q8HR IV 03/28/24 14:00 03/30/24 05:36 100 MLS/HR Carvedilol 6.25 mg Q12HR PO 03/28/24 22:00 03/29/24 21:20 6.25 MG Hydralazine HCl 25 mg Q8HR PO 03/28/24 22:00 03/30/24 05:36 25 MG Isosorbide Mononitrate 30 mg DAILY PO 03/29/24 10:00 03/29/24 16:13 30 MG Hydralazine HCl 10 mg Q6HP PRN IV 03/30/24 02:30 03/30/24 02:46 10 MG Patient Own Medication 1 HS PO 03/30/24 22:00 Heparin Sodium/ Dextrose 250 ml @ 10 mls/hr Q24H IV 03/30/24 12:00 03/30/24 15:31 10 MLS/HR Examination Physical examination: General Appearance: Alert, Oriented X3, Cooperative, No acute distress HEENT: Atraumatic, PERRLA, EOMI, Mucous membrane moist/pink Respiratory: Clear to auscultation, Normal air movement Cardiovascular: Regular rate, Normal S1, Normal S2, No murmurs, no chest wall tenderness Abdominal: Normal bowel sounds, Soft, No tenderness, No hepatospenomegaly, No masses Extremities: No clubbing, No cyanosis, No edema, Normal pulses, No tenderness/swelling Skin: No rashes, No breakdown, No significant lesion Neuro: Normal gait, Normal speech, Strength at 5/5 X4 ext, Normal tone, Sensation intact, grossly intact cranial nerves. Psych/Mental Status: Mental status NL, Mood NL laboratory and microbiology Laboratory Tests 03/30/24 13:54 03/30/24 06:08 Test 03/30/24 06:08 Range/Units Serum Glucose 101 74-106 mg/dL Microbiology Date/Time Source Procedure Growth Status 03/27/24 21:41 Blood Blood Culture - Preliminary NO GROWTH AFTER 48 HOURS OF INCUBATION. Resulted Labs and/or images reviewed: Labs reviewed by me, Image(s) reviewed by me Problem List/Assessment/Plan Problem List/Assessment/Plan Assessment/Plan Generalized weakness likely due to severe anemia Severe anemia likely due to possible lower GI bleed Acute episode of diarrhea with hematochezia -initial hemoglobin was 6.3 -patient complained of profuse bloody diarrhea -ordered iron panel and ferritin, iron is normal range and ferritin is elevated -2 units of RBCs were transfused, most recent hemoglobin was 8 -Patient had hemodialysis yesterday and urea/craeatinine today -He underwent EGD and colonoscopy today and there was no active bleeding point according to GI -stool occult came back positive -GI on board -Monitor Hb and Hct Q8hr -chest x-ray was grossly unremarkable Possible acute diverticulitis -CT scan of the abdomen and pelvis showed mild colonic diverticulosis with early signs of acute diverticulitis -continue IV metronidazole -continue IV ceftriaxone -clear liquid diet ESRD on Hemodialysis (Sunday, and Sunday) -last BUN was 48, creatinine 10.29 -nephrology is on board -patient is scheduled for hemodialysis tomorrow -monitor kidney function -hold fluids at this time -continue sevelamer 800 mg t.i.d. -Patient had hemodialysis yesterday and urea/craeatinine today -Nephrology recommended HD on TTS schedule. Acute on chronic heart failure with reduced ejection fraction (HFrEF 25-30%) Hx of coronary artery disease s/p PTCA x2 -echocardiogram showed an LVEF of 25-30% with global hypokinesis of the left ventricle. There is no significant valvular abnormalities or pericardial effusion. -BNP came back at 612 -continue Carvedilol 6.25mg BID -Ordered EKG and trops which are trending up -Consulted Cardiology with new onset HFrEF NSTEMI type 2 likely due to above -trend troponins -EKG showed sinus rhythm with no ST segment elevation or depression at this time. No chest pain/discomfort reported by the patient -Cardiology stated IV heparin drip and possible left heart catheterization on Sunday. Hyperkalemia resolved -initial potassium was 5.7 - Hyperkalemia protocol management -patient underwent hemodialysis yesterday and 1 L of fluid was removed. - Monitor BMP Primary hypertension -Carvedilol 6.25mg BID Dyslipidemia -Ordered lipid panel Restless leg syndrome -resumed home medication ropinirole 0.5mg daily -gabapentin 300 mg daily Goals of care discussed with the patient at bedside for >23min, FULL CODE Plan discussed with Dr. Harley Plan discussed with: Patient, Other CC Plasma Assessment Blood Product Administration S: 0000 GETACHEW MAI RESIDENT Mar 30, 2024 15:43
[2024-03-30] MEDS: ROPINIROLE 0.5 MG PO SCH (21:19)
[2024-03-30 21:46] LABS: INR 1.03 (0.9-1.15); Partial Thromboplastin Time 55.2 SEC (24.5-34.5); Prothrombin Time 10.9 sec (9.3-11.8)
[2024-03-31] VITALS (9 sets, daily range): BP systolic 123–161; BP diastolic 61–92; PULSE 72–87; RESP 15–18; TEMP 98–98.6; O2SAT 94–97
[2024-03-31 03:15] LABS: Basophils # (auto) 0 10 ^3/uL (0-0.2); Eosinophils # (auto) 0.1 10 ^3/uL (0-0.8); Lymphocytes # (auto) 0.8 10 ^3/uL (0.4-5.4); Monocytes # (auto) 0.4 10 ^3/uL (0-1.3); Neutrophils # (auto) 2.1 10 ^3/uL (1.6-8.6); Platelet Count (auto) 119 10^3/uL (140-450); White Blood Cell 3.5 10^3/uL (4.4-10.8)
[2024-03-31 03:17] LABS: Basophils % (auto) 0.9 % (0.0-2.0); Hematocrit 22.2 % (41.0-53.0); Hemoglobin 7.5 g/dL (13.5-17.5); Lymphocytes % (auto) 24.2 % (10.0-50.0); Mean Corpuscular Hemoglobin 32.5 pg (28.0-32.0); Mean Corpuscular Hgb Conc. 33.8 g/dL (32.0-36.0); Mean Corpuscular Volume 96.4 fL (80.0-100.0); Monocytes % (auto) 11.4 % (0.0-12.0); Neutrophils % (auto) 60.5 % (37.0-80.0); Red Blood Cells 2.31 10^6/uL (4.5-5.90); Red Cell Distribution Width 15.1 % (11.8-14.3)
[2024-03-31 03:26] LABS: Albumin 3.3 g/dL (3.2-4.8); Alkaline Phosphatase 68 U/L (46-116); Anion Gap 7 (5-15); Aspartate Aminotransferase 15 U/L (13-40); BUN/Creatinine Ratio 2.9 (10.0-20.0); Bilirubin, Total 0.3 mg/dL (0.2-1.0); Calcium 9.4 mg/dL (8.7-10.4); Carbon Dioxide 31 mmol/L (20-31); Chloride 101 mmol/L (98-107); Sodium 139 mmol/L (136-145)
[2024-03-31 03:29] LABS: Alanine Aminotransferase < 9 U/L (7-40); Blood Urea Nitrogen 27 mg/dL (9-23); Glucose 127 mg/dL (74-106)
[2024-03-31 03:32] LABS: INR 1.01 (0.9-1.15); Partial Thromboplastin Time 53.9 SEC (24.5-34.5); Prothrombin Time 10.7 sec (9.3-11.8)
--- NOTE | 2024-03-31 10:50 | ECG ---
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
[2024-03-31 12:06] LABS: Hematocrit 25.1 % (41.0-53.0); Hemoglobin 8.5 g/dL (13.5-17.5)
--- NOTE | 2024-03-31 13:29 | DVHPNRES ---
Progress Note Date Seen: Mar 31, 2024 Resident Creating Document: YONI RDZ RESIDENT Has the PT tested + for MRSA If YES, has PT been informed?: No Medical Necessity Reason Pt with a Central, PICC or Fol: No Subjective Review of Systems This is a 68-year-old male with past medical history of hypertension, dyslipidemia, ESRD dialysis 3 times a week, myocardial infarction s/p PCI x2 stents (1 year ago, per previous records), gout, restless leg syndrome, who presented to the ED due to bloody diarrhea. According to the patient, he started having bloody diarrhea in the evening of 03/26/2023, The patient reported more than 10 bowel movements overnight. Per patient, he missed his dialysis session on Sunday and after the completion of his dialysis session on with removal of 3 L of fluid, he noticed increasing lightheadedness which is what prompted this visit to the hospital. Denies having similar symptoms in the past. On admission he was found to have any hemoglobin of 6.3 for which 2 units of red blood cells were transfused. BUN and creatinine were significantly elevated in the setting of end-stage renal disease. GI was consulted for possible lower GI bleed. Upon my examination, the patient denied chest pain, shortness of breath, abdominal pain, dizziness or weakness. The patient was admitted for further stabilization of his hemoglobin and further assess the possible cause. Patient seen and examined at bedside. The patient is alert and oriented x3. Patient denies chest pain, palpitations, shortness of breath or any other cardiac symptoms. Cardiology assessed the patient and considered that this could be a demand ischemia likely due to severe anemia. They also considered that patient is not stable due to his low hb requiring multiple transfusions. GI performed EGD which showed mild duodenitis without active bleeding and colonoscopy showed diverticulosis in the sigmoid and ascending colon without evidence of diverticulitis or any active bleeding. They mentioned that diverticula could be the possible source of bleeding. Spoke with Dr. Abby Sheldon/onc, regarding the case she recommended to perform a bone marrow biopsy to rule out any myelodysplastic syndrome. She also recommended to measure fibrinogen levels and ferritin once again since it could be falsely elevated due to recent transfusions. ROS Constitutional: Denies weight loss, fever and chills. HEENT: Denies changes in vision and hearing. Respiratory: Denies shortness of breath and cough Cardiovascular: Denies chest discomfort or palpitations GI: Denies abdominal pain, nausea, vomiting and diarrhea. : Denies dysuria and urinary frequency. Musculoskeletal: Denies myalgias and joint pain Skin: Denies rash and pruritus. Neurological: Denies dizziness, headache, vision or hearing problems Objective vital signs Vital Sign Date Time Temp Pulse Resp B/P (MAP) Pulse Ox O2 Delivery O2 Flow Rate FiO2 03/31/24 10:10 78 134/63 (86) 03/31/24 09:00 98.6 17 95 98.6 03/31/24 08:00 Room Air* 0 21 Total Intake and Output 03/30/24 03/30/24 03/31/24 15:00 23:00 07:00 Intake Total 475 ml 200 ml Balance 475 ml 200 ml medications Current Medications Medications Dose Ordered Sig/Ryan Route Start Time Stop Time Status Last Admin Dose Admin Pantoprazole Sodium 40 mg BID IV 03/28/24 10:00 03/31/24 09:07 40 MG Sevelamer HCl 800 mg TIDWM PO 03/28/24 08:00 03/31/24 09:09 800 MG Ceftriaxone Sodium 50 ml @ 100 mls/hr DAILY@09 IV 03/29/24 09:00 03/31/24 09:07 100 MLS/HR Metronidazole 100 ml @ 100 mls/hr Q8HR IV 03/28/24 14:00 03/31/24 05:30 100 MLS/HR Carvedilol 6.25 mg Q12HR PO 03/28/24 22:00 03/31/24 09:08 6.25 MG Hydralazine HCl 25 mg Q8HR PO 03/28/24 22:00 03/31/24 05:29 25 MG Isosorbide Mononitrate 30 mg DAILY PO 03/29/24 10:00 03/31/24 09:09 30 MG Hydralazine HCl 10 mg Q6HP PRN IV 03/30/24 02:30 03/31/24 09:08 10 MG Patient Own Medication 1 HS PO 03/30/24 22:00 03/30/24 21:19 1 Examination Physical Examination General: Patient alert and oriented in person, place and time. Patient following commands. HEENT: Normocephalic, atraumatic, moist mucous membranes Respiratory/pulmonary: Clear lungs bilaterally, no associated crackles or wheezes. Cardiovascular: Normal heart sounds S1 and S2 with no associated murmurs Abdomen: Abdomen nondistended, there is no pain to palpation in any of the abdominal quadrants, no palpable masses. Extremities: There is no peripheral edema present at the lower extremities. Peripheral Pulses: 3+ Radial (R). 3+ Radial (L). 3+ Dorsalis pedis (R). 3+ Dorsalis pedis(L) Skin: No rashes or pruritus, there is no sacral edema present at this time. Neurological: Intact cranial nerves with no focal neurologic deficits laboratory and microbiology Laboratory Tests 03/31/24 11:30 03/31/24 02:56 Test 03/31/24 02:56 Range/Units Serum Glucose 127 H 74-106 mg/dL Microbiology Date/Time Source Procedure Growth Status 03/27/24 21:41 Blood Blood Culture - Preliminary NO GROWTH AFTER 72 HOURS OF INCUBATION. Resulted Problem List/Assessment/Plan Problem List/Assessment/Plan Assessment/Plan Generalized weakness likely due to severe anemia Severe anemia likely due to possible lower GI bleed Acute episode of diarrhea with hematochezia -initial hemoglobin was 6.3 -patient complained of profuse bloody diarrhea -ordered iron panel and ferritin, iron is normal range and ferritin is elevated -2 units of RBCs were transfused, most recent hemoglobin was 7.3 -on 03/29/2024 hemoglobin was 6.7 and 1 unit of red blood cells was transfused. -Today hb is 7.5 -ordered haptoglobin -ordered fibrinogen -ordered ferritin -hemodialysis performed on 03/29/2024 removing 1 L of fluids -GI performed EGD showing mild duodenitis with no active bleeding. Colonoscopy showed diverticulosis in the sigmoid and ascending colon with no active bleeding. GI states that possible bleed could be coming from diverticula. -stool occult came back positive -GI on board -Monitor Hb and Hct -chest x-ray was grossly unremarkable Pancytopenia -case was discussed with heme/Onco Dr. Mora, after analyzing the case she recommended bone marrow biopsy -consulted IR for bone marrow biopsy tomorrow a.m. Possible acute diverticulitis -CT scan of the abdomen and pelvis showed mild colonic diverticulosis with early signs of acute diverticulitis -continue IV metronidazole -continue IV ceftriaxone -mechanical soft diet ESRD on Hemodialysis (Sunday, and Sunday) -last BUN was 48, creatinine 10.29 -nephrology is on board -patient is scheduled for hemodialysis tomorrow -monitor kidney function -hold fluids at this time -continue sevelamer 800 mg t.i.d. Acute on chronic heart failure with reduced ejection fraction (HFrEF 25-30%) Hx of coronary artery disease s/p PTCA x2 -echocardiogram showed an LVEF of 25-30% with global hypokinesis of the left ventricle. There is no significant valvular abnormalities or pericardial effusion. -BNP came back at 612 -continue Carvedilol 6.25mg BID -Ordered EKG and trops which are trending up -Consulted Cardiology with new onset HFrEF NSTEMI type 2 likely due to above -trend troponins -EKG showed sinus rhythm with no ST segment elevation or depression at this time. No chest pain/discomfort reported by the patient -heparin was initially started but was discontinued by Cardiology recommendation -cardiology states that there is no need for further procedure at this time since it most likely NSTEMI type 2, clinically asymptomatic and currently unstable due to severe anemia with multiple transfusions. Hyperkalemia -initial potassium was 5.0 -we gave hyperkalemia protocol with albuterol, Lokelma and insulin with dextrose -monitor electrolytes closely Primary hypertension -Carvedilol 6.25mg BID Dyslipidemia -Ordered lipid panel Restless leg syndrome -resumed home medication ropinirole 0.5mg daily -gabapentin 300 mg daily Goals of care discussed with the patient at bedside for >23min, FULL CODE Plan discussed with Dr. Estrada Plan discussed with: Patient My Orders My Orders Orders - YONI RDZ Procedure Category Date Status Time * Hematology/Oncology CONS 03/31/24 Transmitted Consult 11:40 Haptoglobin LAB 03/31/24 In Process 11:41 CC Plasma Assessment Blood Product Administration S: 0000 Date of Service: Mar 31, 2024 Billing Provider: YAN BABCOCK MD Common Visit Codes: [id number] INP/OBS CARE(HIGH) YONI RDZ RESIDENT Mar 31, 2024 13:29 YAN BABCOCK MD Apr 02, 2024 00:23
--- NOTE | 2024-03-31 14:03 | DVHPN2 ---
Consult Progress Note Date Seen: Mar 31, 2024 Subjective Review of Systems: CVS:Normal, RESPIRATORY:Normal, NEURO:Normal Objective vital signs Vital Sign Date Time Temp Pulse Resp B/P (MAP) Pulse Ox O2 Delivery O2 Flow Rate FiO2 03/31/24 13:50 136/71 03/31/24 13:00 98.0 81 17 95 98.0 03/31/24 08:00 Room Air* 0 21 Total Intake and Output 03/30/24 03/30/24 03/31/24 15:00 23:00 07:00 Intake Total 475 ml 200 ml Balance 475 ml 200 ml medications Current Medications Medications Dose Ordered Sig/Ryan Route Start Time Stop Time Status Last Admin Dose Admin Pantoprazole Sodium 40 mg BID IV 03/28/24 10:00 03/31/24 09:07 40 MG Sevelamer HCl 800 mg TIDWM PO 03/28/24 08:00 03/31/24 13:50 800 MG Ceftriaxone Sodium 50 ml @ 100 mls/hr DAILY@09 IV 03/29/24 09:00 03/31/24 09:07 100 MLS/HR Metronidazole 100 ml @ 100 mls/hr Q8HR IV 03/28/24 14:00 03/31/24 13:50 100 MLS/HR Carvedilol 6.25 mg Q12HR PO 03/28/24 22:00 03/31/24 09:08 6.25 MG Hydralazine HCl 25 mg Q8HR PO 03/28/24 22:00 03/31/24 13:50 25 MG Isosorbide Mononitrate 30 mg DAILY PO 03/29/24 10:00 03/31/24 09:09 30 MG Hydralazine HCl 10 mg Q6HP PRN IV 03/30/24 02:30 03/31/24 09:08 10 MG Patient Own Medication 1 HS PO 03/30/24 22:00 03/30/24 21:19 1 Examination: LUNGS:Normal, CVS:Normal, NEURO:Normal laboratory and microbiology Laboratory Tests 03/31/24 11:30 03/31/24 02:56 Test 03/31/24 02:56 Range/Units Serum Glucose 127 H 74-106 mg/dL Problem List/Assessment/Plan Problem List/Assessment/Plan NSTEMI, rule out type I Acute on chronic HFrEF, NYHA class III Questionable hx of coronary artery disease with PCI Severe anemia status post multiple PRBC transfusions, ?GI bleed Hypertension Hyperlipidemia History of CVA x2 ESRD on HD Hyperkalemia Morbid obesity Plan/Recommendation (Dr. Caro) * Transthoracic echocardiogram reveals EF 25-30% * Continue guideline directed medical therapy for CHF * Hold RUPESH/ARB/ARNI/SGLT2i/MRA given renal function * Continue Hydralazine and Imdur for BP control * Lipid-lowering agent * GI recommendations The patient is cardiac stable and free of chest pain, SOB, or anginal symptoms. Given severe anemia with +FOBT including multiple blood transfusions, he is not a candidate for elective invasive cardiac procedures at this time. He can follow-up with primary ict managers for ischemic work-up as deemed necessary. There is no further cardiac work-up indicated at this time. Kindly call if in need to re-consult. Thank you for allowing us to care for this patient. This medical document was created using an electronic medical record system with voice recognition software and computerized dictation system. Although this document has been carefully reviewed, there might still be some phonetic and typographical errors. Occasional wrong-word or ``sound-alike substitutions may have occurred due to the inherent limitations of voice recognition software. These areas are purely typographical due to imperfections of the software programs and do not reflect any compromise in the patient's medical care. Please read the chart carefully and recognize, using context, where these substitutions have occurred. Plan discussed with: Patient, Other CC Plasma Assessment Blood Product Administration S: 0000 Date of Service: Mar 31, 2024 Billing Provider: OSMANI SOUZA Cardiology Common Codes: [id number] [facility] OSMANI SOUZA Mar 31, 2024 14:03
[2024-03-31 15:37] LABS: Hemoglobin 8.6 g/dL (13.5-17.5)
[2024-03-31 15:39] LABS: Hematocrit 25.9 % (41.0-53.0)
--- NOTE | 2024-03-31 16:57 | DVHPN2 ---
Progress Note - Dictate Date Seen: Mar 31, 2024 Has the PT tested + for MRSA If YES, has PT been informed?: No Medical Necessity Reason Pt with a Central, PICC or Fol: No Subjective no new symptoms stable vital signs Vital Sign Date Time Temp Pulse Resp B/P (MAP) Pulse Ox O2 Delivery O2 Flow Rate FiO2 03/31/24 13:50 136/71 03/31/24 13:00 98.0 81 17 95 98.0 03/31/24 08:00 Room Air* 0 21 Total Intake and Output 03/30/24 03/30/24 03/31/24 15:00 23:00 07:00 Intake Total 475 ml 200 ml Balance 475 ml 200 ml medications Current Medications Medications Dose Ordered Sig/Ryan Route Start Time Stop Time Status Last Admin Dose Admin Pantoprazole Sodium 40 mg BID IV 03/28/24 10:00 03/31/24 09:07 40 MG Sevelamer HCl 800 mg TIDWM PO 03/28/24 08:00 03/31/24 13:50 800 MG Ceftriaxone Sodium 50 ml @ 100 mls/hr DAILY@09 IV 03/29/24 09:00 03/31/24 09:07 100 MLS/HR Metronidazole 100 ml @ 100 mls/hr Q8HR IV 03/28/24 14:00 03/31/24 13:50 100 MLS/HR Carvedilol 6.25 mg Q12HR PO 03/28/24 22:00 03/31/24 09:08 6.25 MG Hydralazine HCl 25 mg Q8HR PO 03/28/24 22:00 03/31/24 13:50 25 MG Isosorbide Mononitrate 30 mg DAILY PO 03/29/24 10:00 03/31/24 09:09 30 MG Hydralazine HCl 10 mg Q6HP PRN IV 03/30/24 02:30 03/31/24 09:08 10 MG Patient Own Medication 1 HS PO 03/30/24 22:00 03/30/24 21:19 1 objective Alert and oriented 3 NAD Lungs CTA CV RR, no pericardial rub Abdomen: soft NT No edema Neuro: AAOx3. no focal deficits + Rt IJ TC laboratory and microbiology Laboratory Tests 03/31/24 15:20 03/31/24 02:56 Test 2/3/25 02:56 Range/Units Serum Glucose 127 H 74-106 mg/dL Assessment/Plan Assessment: 1 ESRD on HD 2 GI Bleeding 3 Anemia of CKD 4 HTN 5 DM2 6 Elevated troponin, demand ischemia, cardiology following Plan: Next HD on Sunday TTS schedule for dialysis s/p EGD and colonoscopy. diverticulosis, but no active bleeding plan for BM biopsy BYRON post HD. Transfuse PRBC to keep Hb > 7 Plan discussed with: Patient CC Plasma Assessment Blood Product Administration S: 0000 ALYSSA DE LA CRUZ MD Mar 31, 2024 16:57
[2024-03-31 21:20] LABS: Hematocrit 23.7 % (41.0-53.0); Hemoglobin 8.1 g/dL (13.5-17.5)
[2024-04-01 01:00] VITALS: BP 154/82; PULSE 83; RESP 18; TEMP 98.8; O2SAT 92
[2024-04-01 05:00] VITALS: BP 144/79; PULSE 92; RESP 18; TEMP 98.5; O2SAT 91
[2024-04-01] MEDS ORDERED: SODIUM CHL 0.9% 1000 ML BAG XX ONE (07:00)
[2024-04-01] MEDS ORDERED: fentaNYL CITRATE 100 MCG/2 ML VL IV ONE (07:00)
[2024-04-01] MEDS ORDERED: MIDAZOLAM HCL 2MG/2ML 2ml VIAL (1mg/ml) IV ONE (07:00)
[2024-04-01] MEDS ORDERED: LIDOCAINE 2%HCL (LOCAL ANESTH.) INJ 10ml MDV ONE (07:12)
[2024-04-01 07:47] LABS: Basophils # (auto) 0 10 ^3/uL (0-0.2); Basophils % (auto) 0.7 % (0.0-2.0); Eosinophils # (auto) 0.1 10 ^3/uL (0-0.8); Eosinophils % (auto) 2.6 % (0.0-7.0); Hematocrit 23.7 % (41.0-53.0); Hemoglobin 8.2 g/dL (13.5-17.5); Lymphocytes # (auto) 0.8 10 ^3/uL (0.4-5.4); Lymphocytes % (auto) 18.7 % (10.0-50.0); Mean Corpuscular Hemoglobin 33.2 pg (28.0-32.0); Mean Corpuscular Hgb Conc. 34.5 g/dL (32.0-36.0); Mean Corpuscular Volume 96.3 fL (80.0-100.0); Monocytes # (auto) 0.5 10 ^3/uL (0-1.3); Neutrophils # (auto) 2.9 10 ^3/uL (1.6-8.6); Nucleated Red Blood Cells % 0.1 %; Platelet Count (auto) 147 10^3/uL (140-450); Red Blood Cells 2.46 10^6/uL (4.5-5.90); Red Cell Distribution Width 15.2 % (11.8-14.3); White Blood Cell 4.4 10^3/uL (4.4-10.8)
[2024-04-01 08:00] VITALS: PULSE 79
[2024-04-01 09:00] VITALS: BP 147/74; PULSE 87; RESP 20; TEMP 98.3; O2SAT 93
--- NOTE | 2024-04-01 09:11 | DVH ---
CT PELVIS WO CONTRAST, HISTORY: BONE MARROW BX COMPARISON: None PROCEDURE: Informed consent and time-out was performed before the procedure. Conscious sedation was p erformed by the interventional radiology nurse. The left posterior pelvic bone was marked, sterilized , draped, and locally anesthetized using approximately 10 ml of 1% lidocaine. Axial CT images were us ed for localization. A 11 gauge [employer] Bone Biopsy kit was used to take 13 mL aspirate and 1 core. The biopsy needle was then removed. No immediate complications noted. SEDATION: Dr. Luc Velazquez was personally responsible for the administration of moderate sedation during t he procedure performed, including the use of an independent trained observer who had no other duties during the procedure. The drug[s] utilized were IV Fentanyl and Versed (see nursing log for details). The total time of supervision by the attending physician was approximately 20 minutes. FINDINGS: Axial CT images demonstrates biopsy needle within the left posterior pelvic bone. IMPRESSION: Successful CT-guided biopsy of the left posterior pelvic bone.
[2024-04-01 09:13] LABS: Alanine Aminotransferase 10 U/L (7-40); Alkaline Phosphatase 74 U/L (46-116); Anion Gap 12 (5-15); BUN/Creatinine Ratio 3.1 (10.0-20.0); Carbon Dioxide 26 mmol/L (20-31); Chloride 101 mmol/L (98-107); Magnesium 2.3 mg/dL (1.6-2.6); Sodium 139 mmol/L (136-145)
[2024-04-01 09:14] LABS: Albumin 3.7 g/dL (3.2-4.8); Aspartate Aminotransferase 15 U/L (13-40)
[2024-04-01 09:15] LABS: Total Protein 5.7 g/dL (5.7-8.2)
[2024-04-01 09:28] LABS: Bilirubin, Total 0.3 mg/dL (0.2-1.0); Blood Urea Nitrogen 35 mg/dL (9-23); Glucose 107 mg/dL (74-106); Potassium 5.2 mmol/L (3.5-5.1)
[2024-04-01 12:26] LABS: Hemoglobin 8.2 g/dL (13.5-17.5)
[2024-04-01 12:29] LABS: Hematocrit 24.6 % (41.0-53.0)
[2024-04-01 13:00] VITALS: BP 169/83; PULSE 75; RESP 16; TEMP 98.2; O2SAT 95
[2024-04-01] MEDS ORDERED: CARV12.544 PO (14:18)
[2024-04-01] MEDS ORDERED: ISOS1TAB28 PO (14:18)
[2024-04-01] MEDS ORDERED: HYDR25TA88 PO (14:18)
[2024-04-01] MEDS ORDERED: CIPR500T4 PO (14:18)
--- NOTE | 2024-04-01 14:35 | DVHDSRES ---
Discharge Summary Date of Admission Resident Creating Document: YONI RDZ RESIDENT Mar 27, 2024 at 22:31 Date of Discharge: Apr 01, 2024 Admitting Diagnosis ACUTE EPISODE OF DIARRHEA WITH HEMATOCHEZIA Wounds: No wounds present at this time. Labs/Diagnostic Data: Laboratory Results Test 04/01/24 12:00 04/01/24 07:00 03/31/24 16:15 03/31/24 02:56 Hemoglobin 8.2 g/dL (13.5-17.5) Hematocrit 24.6 % (41.0-53.0) White Blood Count 4.4 10^3/uL (4.4-10.8) Red Blood Count 2.46 10^6/uL (4.5-5.90) Mean Corpuscular Volume 96.3 fL (80.0-100.0) Mean Corpuscular Hemoglobin 33.2 pg (28.0-32.0) Mean Corpuscular Hemoglobin Concent 34.5 g/dL (32.0-36.0) Red Cell Distribution Width 15.2 % (11.8-14.3) Platelet Count 147 10^3/uL (140-450) Mean Platelet Volume 9.0 fL (6.9-10.8) Neutrophils (%) (Auto) 67.0 % (37.0-80.0) Lymphocytes (%) (Auto) 18.7 % (10.0-50.0) Monocytes (%) (Auto) 11.0 % (0.0-12.0) Eosinophils (%) (Auto) 2.6 % (0.0-7.0) Basophils (%) (Auto) 0.7 % (0.0-2.0) Neutrophils # (Auto) 2.9 10 ^3/uL (1.6-8.6) Lymphocytes # (Auto) 0.8 10 ^3/uL (0.4-5.4) Monocytes # (Auto) 0.5 10 ^3/uL (0-1.3) Eosinophils # (Auto) 0.1 10 ^3/uL (0-0.8) Basophils # (Auto) 0 10 ^3/uL (0-0.2) Nucleated Red Blood Cells 0.1 % Sodium Level 139 mmol/L (136-145) Potassium Level 5.2 mmol/L (3.5-5.1) Chloride Level 101 mmol/L (98-107) Carbon Dioxide Level 26 mmol/L (20-31) Anion Gap 12 (5-15) Blood Urea Nitrogen 35 mg/dL (9-23) Creatinine 11.27 mg/dL (0.700-1.30) Glomerular Filtration Rate Calc 5 mL/min (>90) BUN/Creatinine Ratio 3.1 (10.0-20.0) Serum Glucose 107 mg/dL (74-106) Calcium Level 10.0 mg/dL (8.7-10.4) Magnesium Level 2.3 mg/dL (1.6-2.6) Total Bilirubin 0.3 mg/dL (0.2-1.0) Aspartate Amino Transferase (AST) 15 U/L (13-40) Alanine Aminotransferase (ALT) 10 U/L (7-40) Alkaline Phosphatase 74 U/L (46-116) Total Protein 5.7 g/dL (5.7-8.2) Albumin 3.7 g/dL (3.2-4.8) Fibrinogen 312 mg/dL (177-375) Ferritin 1141.3 ng/mL (22-322) Haptoglobin 189 mg/dL (32-363) Prothrombin Time 10.7 sec (9.3-11.8) Prothrombin Time INR 1.01 (0.9-1.15) Activated Partial Thromboplast Time 53.9 SEC (24.5-34.5) Test 03/30/24 17:51 03/30/24 06:05 03/29/24 10:59 03/28/24 08:00 Troponin I High Sensitivity 2183 ng/L (</=54) Lactic Acid Level 0.9 mmol/L (0.4-2.0) Hepatitis B Surface Antigen Negative (Negative) Reticulocyte Count (auto) 1.46 % (0.5-1.5) Lactate Dehydrogenase 119 U/L (120-246) B-Type Natriuretic Peptide 612.07 pg/mL (0-100) Triglycerides Level 148 mg/dL (< 150) Cholesterol Level 92 mg/dL (< 200) LDL Cholesterol 49 mg/dL (< 100) HDL Cholesterol 21 mg/dL (40-59) Vitamin B12 Level 184 pg/mL (211-911) Folic Acid 19.02 ng/mL (>5.38) Test 03/27/24 22:50 03/27/24 21:41 03/27/24 21:15 03/27/24 21:00 POC Glucose 164 mg/dl (70-106) Phosphorus Level 3.3 mg/dL (2.4-5.1) Lipase 24 U/L (12-53) Thyroid Stimulating Hormone (TSH) 4.58 uIU/mL (0.55-4.78) Iron Level 94 ug/dL (65-175) Total Iron Binding Capacity 189 ug/dL (250-425) Percent Iron Saturation 49.7 % (20-55) Stool Occult Blood Positive (Negative) Stool Occult Blood Sample #3 (Negative) Other Laboratory Tests 04/01/24 12:00 04/01/24 07:00 Brief Hx & Hospital Course: Hospitalization course: This is a 68-year-old male with past medical history of hypertension, dyslipidemia, ESRD dialysis 3 times a week, myocardial infarction s/p PCI x2 stents (1 year ago, per previous records), gout, restless leg syndrome, who presented to the ED due to bloody diarrhea. According to the patient, he started having bloody diarrhea in the evening of 03/26/2023, The patient reported more than 10 bowel movements overnight before coming to the ED. Per patient, he missed his dialysis session on Sunday and after the completion of his dialysis session on with removal of 3 L of fluid, he noticed increasing lightheadedness which is what prompted this visit to the hospital. Denies having similar symptoms in the past. On admission he was found to have any hemoglobin of 6.3 for which 2 units of red blood cells were transfused. BUN and creatinine were significantly elevated in the setting of end-stage renal disease. GI was consulted for possible lower GI bleed. Upon my examination, the patient denied chest pain, shortness of breath, abdominal pain, dizziness or weakness. Initial CT scan of the abdomen was showing possible early diverticulitis, the patient was started on IV metronidazole and ceftriaxone. GI was consulted for possibility of lower GI bleed. EGD was performed showing duodenitis without active bleeding and colonoscopy showed diverticulosis in the sigmoid and ascending colon without evidence of any active bleeding. Cardiology was involved in the case as well due to explanation trending up of troponins. Cardiology determined that the patient most likely was having an NSTEMI type 2 likely due to severe anemia and other comorbidities. The case was also discussed with hemato oncology because the patient was coursing with pancytopenia with unexplained source. Hemato oncology recommended to perform a bone marrow biopsy to rule out any myelodysplastic syndrome. Bone marrow biopsy was performed today on 03/01/2024. Biopsy results will be reviewed with the patient as an outpatient. The patient underwent hemodialysis in multiple occasions during his hospitalization stay. The patient was seen and examined at bedside. Hemoglobin and hematocrit has been stable in the last two days. The patient is asymptomatic and denies fever/chills, shortness of breath, chest pain, abdominal pain, diarrhea, bleeding or any other complaints at this time. We will discharge the patient home on ciprofloxacin 500 mg b.i.d. for five additional days to complete treatment of possible diverticulitis. We will also sent prescription of hydralazine 25 mg t.i.d., isosorbide mononitrate 30 mg daily, carvedilol 6.25 mg b.i.d. due to CHF with ESRD. Patient agrees and understands the plan. Admission diagnosis: Acute episode of diarrhea with hematochezia DISCHARGE PLAN: ISOSORBIDE MONONITRATE 30 MG DAILY HYDRALAZINE 25 MG T.I.D. P.O. CARVEDILOL 6.25 MG B.I.D. CIPROFLOXACIN 500 MG B.I.D. FOR 5 DAYS FOLLOW-UP WITH DISCHARGE CLINIC FOLLOW-UP WITH HIS PCP IN ONE WEEK, FOR BONE MARROW BIOPSY RESULTS. Consults/Reason for consult Cardiology due to NSTEMI GI due to possible lower GI bleed for EGD and colonoscopy Heme/Oncology due to pancytopenia Operations or Procedures CLINICAL HISTORY: Lower GI bleeding and bilateral flank pain TECHNIQUE: CT of the abdomen and pelvis was performed without intravenous contrast. This exam was performed according to our departmental dose optimization program. Up-to-date CT equipment and radiation dose reduction techniques are utilized as appropriate. CTDI: 20.55 DLP: 1348.66 WID: COMPARISON: CT CT AB PEL WO CON-NO ORAL OR IV on DOS: 12/08/23 FINDINGS: Lower Thorax: Small ipqoy-vybavhv-cwgr-left pleural effusions. Linear and ground-glass atelectasis in the lung bases. Mild cardiomegaly with trace pericardial fluid. Partially imaged moderate to marked 3-vessel coronary artery calcifications and mild aortic valve calcifications. There is a tip of the central venous catheter at the cavoatrial junction. Hypodensity of the blood pool relative to the myocardium indicative of anemia. Small bilateral symmetric gynecomastia. Liver and Biliary system: Unremarkable. Spleen: Unremarkable. Adrenal Glands and Kidneys: Normal adrenal glands. Mildly atrophic kidneys. There is perinephric soft tissue stranding unchanged. Exophytic bilateral renal hypodensities likely cysts although not optimally evaluated by CT bilateral renal sinus cysts. Bilateral renal hilar vascular calcifications. No hydronephrosis. Pancreas and Retroperitoneum: Normal pancreas. Mildly prominent retroperitoneal lymph nodes although are predominantly normal-size. Aorta and Major Vessels: Aortoiliac vessels are normal in caliber with marked calcified atherosclerotic plaque Bowel, Mesentery and Peritoneal space: Normal caliber small and large bowel. Normal appendix. Mild colonic diverticulosis. No free air or loculated fluid collection. There is slight soft tissue stranding adjacent to the proximal ascending colon with ill definition of 1 of the diverticula posteriorly on series 2, image 54. Pelvis: Decompressed urinary bladder. Mild prostatomegaly. No pelvic lymphadenopathy. Abdominal wall and Osseous Structures: Multilevel lower thoracic and lumbar spondylosis. Prominent inferior endplate schmorl's nodes at L1 and L5. No destructive osseous lesion. IMPRESSION: 1. Mild colonic diverticulosis; slight ill definition of 1 of the diverticula posteriorly in the proximal ascending colon with mild surrounding soft tissue thickening which could reflect early acute diverticulitis 2. Perinephric soft Tissue stranding unchanged. Correlate with urinalysis if there is clinical concern for urinary tract infection. 3. Anemia. 4. Mild cardiomegaly and small rqqpo-bdspwyv-izjo-left pleural effusions. 5. Partially imaged moderate to marked 3-vessel coronary artery calcifications and mild aortic valve calcifications. 6. Mild prostatomegaly. EXAM: XY CHEST PORTABLE CLINICAL HISTORY: CENTRAL LINE PLACEMENT TECHNIQUE: Single AP view of the chest WID: COMPARISON: XY CHEST XRAY 1 VIEW on DOS: 12/09/23 FINDINGS: Lines and tubes: Right IJ central venous catheter with the tip projecting over the low SVC. Chest: The heart size and pulmonary vasculature is within normal limits. Calcified plaque projects over the aortic arch. No pleural effusion, pneumothorax, or consolidation. Linear scarring or atelectasis in the left lung base. The osseous structures are grossly intact. IMPRESSION: 1. No acute cardiopulmonary abnormality. 2. Right IJ central venous catheter placement with tip projecting of the low SVC CT PELVIS WO CONTRAST, HISTORY: BONE MARROW BX COMPARISON: None PROCEDURE: Informed consent and time-out was performed before the procedure. Conscious sedation was performed by the interventional radiology nurse. The left posterior pelvic bone was marked, sterilized, draped, and locally anesthetized using approximately 10 ml of 1% lidocaine. Axial CT images were used for localization. A 11 gauge [employer] Bone Biopsy kit was used to take 13 mL aspirate and 1 core. The biopsy needle was then removed. No immediate complications noted. SEDATION: Dr. Luc Velazquez was personally responsible for the administration of moderate sedation during the procedure performed, including the use of an independent trained observer who had no other duties during the procedure. The drug[s] utilized were IV Fentanyl and Versed (see nursing log for details). The total time of supervision by the attending physician was approximately 20 minutes. FINDINGS: Axial CT images demonstrates biopsy needle within the left posterior pelvic bone. IMPRESSION: Successful CT-guided biopsy of the left posterior pelvic bone. CT PELVIS WO CONTRAST, HISTORY: BONE MARROW BX COMPARISON: None PROCEDURE: Informed consent and time-out was performed before the procedure. Conscious sedation was performed by the interventional radiology nurse. The left posterior pelvic bone was marked, sterilized, draped, and locally anesthetized using approximately 10 ml of 1% lidocaine. Axial CT images were used for localization. A 11 gauge [employer] Bone Biopsy kit was used to take 13 mL aspirate and 1 core. The biopsy needle was then removed. No immediate complications noted. SEDATION: Dr. Luc Velazquez was personally responsible for the administration of moderate sedation during the procedure performed, including the use of an independent trained observer who had no other duties during the procedure. The drug[s] utilized were IV Fentanyl and Versed (see nursing log for details). The total time of supervision by the attending physician was approximately 20 minutes. FINDINGS: Axial CT images demonstrates biopsy needle within the left posterior pelvic bone. IMPRESSION: Successful CT-guided biopsy of the left posterior pelvic bone. Condition at Discharge: Good Final Diagnosis/Problems List Generalized weakness likely due to severe anemia Severe anemia likely due to possible lower GI bleed Acute episode of diarrhea with hematochezia Pancytopenia Possible acute diverticulitis ESRD on Hemodialysis (Sunday, and Sunday) Acute on chronic heart failure with reduced ejection fraction (HFrEF 25-30%) Hx of coronary artery disease s/p PTCA x2 NSTEMI type 2 likely due to above Hyperkalemia Primary hypertension Dyslipidemia Restless leg syndrome Discharge Disposition: Home Discharge Instruct/Medications Diet: Cardiac 2g Na,low cholest, Renal Activity: No Restrictions, As Tolerated Follow Up/Referral: F/U WITH HIS PCP IN 1 WEEK F/U WITH THE DISCHARGE CLINIC CONTINUE HIS DIALYSIS SCHEDULED Medications: ISOSORBIDE MONONITRATE 30 MG DAILY HYDRALAZINE 25 MG T.I.D. P.O. CARVEDILOL 6.25 MG B.I.D. CIPROFLOXACIN 500 MG B.I.D. FOR FIVE DAYS Discharge Statement: "Patient was advised to return to the ER or call 911 if any headaches, dizziness, shortness of breath, chest pain, abdominal pain, bleeding, fevers, or worsening of medical condition. Patient was counseled about treatment plan, medications, possible side effects, patientverbalized understanding. All questions were answered to the best of my ability. This discharge took greater then 30 minutes in planning, reviewing documentation, counseling the patient, and discussing with other team members." ASSESSMENT ASSESSMENT Assessment Generalized weakness likely due to severe anemia Severe anemia likely due to possible lower GI bleed Acute episode of diarrhea with hematochezia Pancytopenia Possible acute diverticulitis ESRD on Hemodialysis (Sunday, and Sunday) Acute on chronic heart failure with reduced ejection fraction (HFrEF 25-30%) Hx of coronary artery disease s/p PTCA x2 NSTEMI type 2 likely due to above Hyperkalemia Primary hypertension Dyslipidemia Restless leg syndrome Date of Service: Apr 01, 2024 Billing Provider: YAN BABCOCK MD Common Visit Codes: 30106-[facility]/OBS DISCH DAY >30min YONI RDZ Apr 01, 2024 14:35 YAN BABCOCK MD Apr 02, 2024 15:44
--- NOTE | 2024-04-01 15:37 | DVHPN2 ---
Progress Note - Dictate Date Seen: Apr 01, 2024 Has the PT tested + for MRSA If YES, has PT been informed?: No Medical Necessity Reason Pt with a Central, PICC or Fol: No Subjective no new symptoms stable vital signs Vital Sign Date Time Temp Pulse Resp B/P (MAP) Pulse Ox O2 Delivery O2 Flow Rate FiO2 04/01/24 13:00 98.2 75 16 169/83 (111) 95 98.2 04/01/24 08:00 Room Air* 0 21 Total Intake and Output 03/31/24 03/31/24 04/01/24 15:00 23:00 07:00 Intake Total 170.5 ml 585 ml 300 ml Output Total 650 ml Balance 170.5 ml -65 ml 300 ml medications Current Medications Medications Dose Ordered Sig/Ryan Route Start Time Stop Time Status Last Admin Dose Admin Pantoprazole Sodium 40 mg BID IV 03/28/24 10:00 04/01/24 10:18 40 MG Sevelamer HCl 800 mg TIDWM PO 03/28/24 08:00 03/31/24 18:03 800 MG Ceftriaxone Sodium 50 ml @ 100 mls/hr DAILY@09 IV 03/29/24 09:00 03/31/24 09:07 100 MLS/HR Metronidazole 100 ml @ 100 mls/hr Q8HR IV 03/28/24 14:00 04/01/24 05:44 100 MLS/HR Carvedilol 6.25 mg Q12HR PO 03/28/24 22:00 03/31/24 21:45 6.25 MG Hydralazine HCl 25 mg Q8HR PO 03/28/24 22:00 04/01/24 05:46 25 MG Isosorbide Mononitrate 30 mg DAILY PO 03/29/24 10:00 03/31/24 09:09 30 MG Hydralazine HCl 10 mg Q6HP PRN IV 03/30/24 02:30 04/01/24 00:55 10 MG Patient Own Medication 1 HS PO 03/30/24 22:00 03/31/24 21:46 1 objective Alert and oriented 3 NAD Lungs CTA CV RR, no pericardial rub Abdomen: soft NT No edema Neuro: AAOx3. no focal deficits + Rt IJ TC laboratory and microbiology Laboratory Tests 04/01/24 12:00 04/01/24 07:00 Test 04/01/24 07:00 Range/Units Serum Glucose 107 H 74-106 mg/dL Assessment/Plan Assessment: 1 ESRD on HD 2 GI Bleeding 3 Anemia of CKD 4 HTN 5 DM2 6 Elevated troponin, demand ischemia, cardiology following Plan: s/p HD today-Sunday Next HD on TTS schedule for dialysis s/p EGD and colonoscopy. diverticulosis, but no active bleeding plan for BM biopsy BYRON post HD. Transfuse PRBC to keep Hb > 7 Plan discussed with: Patient CC Plasma Assessment Blood Product Administration S: 0000 ALYSSA DE LA CRUZ MD Apr 01, 2024 15:36
[2024-04-01 15:46] VITALS: BP 161/89; PULSE 77; TEMP 36.8
[2024-04-01 17:02] LABS: Basophils # (auto) 0 10 ^3/uL (0-0.2); Basophils % (auto) 0.7 % (0.0-2.0); Eosinophils # (auto) 0.1 10 ^3/uL (0-0.8); Eosinophils % (auto) 2.4 % (0.0-7.0); Hematocrit 26.5 % (41.0-53.0); Lymphocytes # (auto) 0.7 10 ^3/uL (0.4-5.4); Lymphocytes % (auto) 15.8 % (10.0-50.0); Mean Corpuscular Hemoglobin 32.7 pg (28.0-32.0); Mean Corpuscular Volume 96.2 fL (80.0-100.0); Monocytes # (auto) 0.5 10 ^3/uL (0-1.3); Monocytes % (auto) 11.2 % (0.0-12.0); Neutrophils # (auto) 3.1 10 ^3/uL (1.6-8.6); Neutrophils % (auto) 69.9 % (37.0-80.0); Platelet Count (auto) 174 10^3/uL (140-450); Red Blood Cells 2.76 10^6/uL (4.5-5.90); Red Cell Distribution Width 15.7 % (11.8-14.3); White Blood Cell 4.5 10^3/uL (4.4-10.8)
[2024-04-01 19:30] LABS: Alanine Aminotransferase 11 U/L (7-40); Albumin 4.4 g/dL (3.2-4.8); Alkaline Phosphatase 88 U/L (46-116); Anion Gap 10 (5-15); Aspartate Aminotransferase 20 U/L (13-40); BUN/Creatinine Ratio 2.4 (10.0-20.0); Blood Urea Nitrogen 17 mg/dL (9-23); Carbon Dioxide 30 mmol/L (20-31); Chloride 100 mmol/L (98-107); Potassium 4.1 mmol/L (3.5-5.1); Sodium 140 mmol/L (136-145)
[2024-04-01 19:31] LABS: Bilirubin, Total 0.5 mg/dL (0.2-1.0); Calcium 10.5 mg/dL (8.7-10.4); Glucose 126 mg/dL (74-106); Total Protein 6.5 g/dL (5.7-8.2)
[2024-04-01] MEDS ORDERED: EPOETIN ALFA-EPBX 10,000 UNIT/1ML VIAL SC ONE (21:00)
== END 2024-04-01 20:49 | disposition home or self-care (01) | DRG 241 ==
LOC: ER 20:17 → TELE 22:31 → TELE-WESTW 22:32
PROVIDERS: ADMIT Student in an Organized Health Care Education/Training Program; ATTEND Emergency Medicine
PROC: 02HV33Z Insertion of Infusion Device into Superior Vena Cava, Percutaneous Approach (ICD-10-PCS; principal; 2024-03-27)
PROC: 30233N1 Transfusion of Nonautologous Red Blood Cells into Peripheral Vein, Percutaneous Approach (ICD-10-PCS; 2024-03-28)
PROC: 5A1D70Z Performance of Urinary Filtration, Intermittent, Less than 6 Hours Per Day (ICD-10-PCS; 2024-03-29)
PROC: 0DJD8ZZ Inspection of Lower Intestinal Tract, Via Natural or Artificial Opening Endoscopic (ICD-10-PCS; 2024-03-30)
PROC: 0DB68ZX Excision of Stomach, Via Natural or Artificial Opening Endoscopic, Diagnostic (ICD-10-PCS; 2024-03-30)
PROC: 0Q933ZX Drainage of Left Pelvic Bone, Percutaneous Approach, Diagnostic (ICD-10-PCS; 2024-04-01)
PROC: 5A1D70Z Performance of Urinary Filtration, Intermittent, Less than 6 Hours Per Day (ICD-10-PCS; 2024-04-01)
DX: K29.81 Duodenitis with bleeding (principal); I21.A1 Myocardial infarction type 2; I50.23 Acute on chronic systolic (congestive) heart failure; D61.818 Other pancytopenia; K57.33 Diverticulitis of large intestine without perforation or abscess with bleeding; N18.6 End stage renal disease; D63.1 Anemia in chronic kidney disease; E11.22 Type 2 diabetes mellitus with diabetic chronic kidney disease; I13.2 Hypertensive heart and chronic kidney disease with heart failure and with stage 5 chronic kidney disease, or end stage renal disease; I25.10 Atherosclerotic heart disease of native coronary artery without angina pectoris; E78.5 Hyperlipidemia, unspecified; E66.01 Morbid (severe) obesity due to excess calories; G25.81 Restless legs syndrome; E87.5 Hyperkalemia; M10.9 Gout, unspecified; Z99.2 Dependence on renal dialysis; Z83.3 Family history of diabetes mellitus; Z95.5 Presence of coronary angioplasty implant and graft; Z86.73 Personal history of transient ischemic attack (TIA), and cerebral infarction without residual deficits; I25.2 Old myocardial infarction; Z79.899 Other long term (current) drug therapy; Z88.8 Allergy status to other drugs, medicaments and biological substances
CPT/HCPCS: 10005; 36415; 36556; 71045; 72192; 74176; 77012; 80048; 80053; 80061; 82270; 82607; 82728; 82746; 82962; 83010; 83540; 83550; 83605; 83615; 83690; 83735; 83880; 84100; 84132; 84443; 84484; 85014; 85018; 85025; 85045; 85384; 85610; 85730; 86850; 86900; 86901; 86920; 87040; 87177; 87340; 90935; 93005; 93306; 94640; 96365; 96375; G0378; J1815; J2003; J2250; J2470; J2704; J3490; Q0162